=== PATIENT | male | born 1965 | race African-American/Black ===

== ENCOUNTER 2019-05-20 11:18 | Inpatient (IN) | payer SELFPAY ==
[2019-05-20 12:22] VITALS: BMI 26.4
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
[2019-05-20] MEDS ORDERED: MAGNESIUM HYDROX 2400MG/30ML ORAL SUSPENSION 30 ML CUP PO PRN (12:51)
[2019-05-20] MEDS ORDERED: hydrOXYzine PAMOATE 25 MG CAPSULE (FP) PO PRN (12:51)
[2019-05-20] MEDS ORDERED: MAG HYDROX/AL HYDROX/SIMETH 30 ML UNIT-DOSE CUP PO PRN (12:51)
[2019-05-20] MEDS ORDERED: MAGNESIUM CITRATE 300 ML BOTTLE PO PRN (12:51)
[2019-05-20] MEDS ORDERED: ACETAMINOPHEN 325 MG TABLET (FP) PO PRN ×2 (12:51)
[2019-05-20] MEDS ORDERED: MENTHOL/PHENOL 1 EACH UD MM PRN (12:51)
[2019-05-20] MEDS ORDERED: BISMUTH SUBSALICYLATE 262 MG/15 ML BTL PO PRN (12:51)
[2019-05-20] MEDS ORDERED: MELATONIN 5 MG TABLETS PO PRN (12:51)
[2019-05-20] MEDS ORDERED: METHOCARBAMOL 500 MG TABLET PO PRN (12:51)
[2019-05-20] MEDS ORDERED: IBUPROFEN 400 MG TABLET (FP) PO PRN (12:51)
[2019-05-20] MEDS ORDERED: chlordiazePOXIDE HCL 10 MG CAPSULE PO PRN (12:51)
[2019-05-20] MEDS ORDERED: ALBUTEROL SO4 8 GM HFA INHALER IH PRN (12:55)
--- NOTE | 2019-05-20 13:46 | EKG ---
Test Reason : Blood Pressure : / mmHG Vent. Rate : 054 BPM Atrial Rate : 054 BPM P-R Int : 130 ms QRS Dur : 122 ms QT Int : 454 ms P-R-T Axes : 025 047 111 degrees QTc Int : 430 ms SINUS BRADYCARDIA WITH PREMATURE ATRIAL COMPLEXES NON-SPECIFIC INTRA-VENTRICULAR CONDUCTION DELAY ST ELEVATION, CONSIDER EARLY REPOLARIZATION, PERICARDITIS, OR INJURY ABNORMAL ECG NO PREVIOUS ECGS AVAILABLE Confirmed by YASMIN MOTT, MANJINDER ([id number]) on 05/20/2019 1:45:47 PM Referred By: Confirmed By:MANJINDER HOFFMAN MD
[2019-05-20] MEDS: chlordiazePOXIDE HCL 25 MG CAPSULE PO SCH ×2 (14:12→21:23)
[2019-05-20] MEDS: NICOTINE 14 MG/24 HOURS TOPICAL PATCH TD SCH (14:14)
[2019-05-20 15:41] LABS: HEMATOCRIT 38.7 % (35.4-49); MCH 26.7 pg (25.7-33.7); MCHC 31.1 g/dl (32.0-35.9); MEAN CELL VOLUME 85.9 fl (80-96); MEAN PLT VOLUME 8.7 fl (7.5-11.1); PLATELET COUNT 188 K/MM3 (134-434); RBC 4.51 M/mm3 (4.00-5.60); RDW 16.8 % (11.9-15.9); WHITE BLOOD COUNT 5.5 K/mm3 (4.0-10.0)
[2019-05-20 16:04] LABS: ALBUMIN 3.5 g/dl (3.4-5.0); BILIRUBIN,TOTAL 0.3 mg/dL (0.2-1); BLOOD UREA NITROGEN 20.5 mg/dL (7-18); CALCIUM 8.9 mg/dL (8.5-10.1); CREATININE 1.2 mg/dL (0.55-1.3); POTASSIUM 4.3 mmol/L (3.5-5.1); TOT PROT 8.1 g/dl (6.4-8.2)
[2019-05-20] MEDS: hydrALAZINE HCL 25 MG TABLET (FP) PO SCH ×2 (16:10→22:23)
[2019-05-20] MEDS: GABAPENTIN 400 MG CAPSULE (FP) PO SCH ×2 (16:45→22:23)
[2019-05-20] MEDS: THIAMINE HCL 100 MG TABLET (FP) PO SCH (22:23)
[2019-05-20] MEDS: CARVEDILOL 25 MG TABLET (FP) PO SCH (22:23)
[2019-05-21] MEDS: chlordiazePOXIDE HCL 25 MG CAPSULE PO SCH ×3 (06:21→22:38)
[2019-05-21] MEDS: hydrALAZINE HCL 25 MG TABLET (FP) PO SCH ×3 (06:21→22:37)
[2019-05-21] MEDS: GABAPENTIN 400 MG CAPSULE (FP) PO SCH ×3 (06:21→22:37)
[2019-05-21] MEDS: RANITIDINE HCL 150 MG TABLET (FP) PO SCH (10:30)
[2019-05-21] MEDS: FUROSEMIDE 40 MG TABLET (FP) PO SCH (10:30)
[2019-05-21] MEDS: CARVEDILOL 25 MG TABLET (FP) PO SCH ×2 (10:30→22:37)
[2019-05-21] MEDS: LISINOPRIL 10 MG TABLET (FP) PO SCH (10:30)
[2019-05-21] MEDS: PRENATAL VITAMINS W/ FOLIC ACID TABLET (FP) PO SCH (10:30)
[2019-05-21] MEDS: NICOTINE 14 MG/24 HOURS TOPICAL PATCH TD SCH (10:30)
[2019-05-21 11:22] LABS: RPR REACTIVE 1:8 (NONREACTIVE)
[2019-05-21 11:25] LABS: TREPONEMA ANTIBODY PREVIOUSLY REACTIVE (NONREACTIVE)
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
[2019-05-21] MEDS ORDERED: PENICILLIN G BENZATHINE 2,400,000 UNIT/4 ML PFS IM ONE (12:16)
--- NOTE | 2019-05-21 12:22 | PN ---
S CIWA - CIWA Score Nausea/Vomitin-Mild Nausea/No Vomiting Muscle Tremors: 2 Anxiety: 3 Agitation: 2 Paroxysmal Sweats: 1-Minimal Palms Moist Orientation: 0-Oriented Tacttile Disturbances: 1-Very Mild Itch/Numbness Auditory Disturbances: 0-None Visual Disturbances: 0-None Headache: 2-Mild CIWA-Ar Total Score: 12 BHS Progress Note (SOAP) Subjective: alert,irritable,anxious,interrupted sleep,tremor Objective: 05/21/19 12:18 Vital Signs Temperature 98.1 F 05/21/19 09:30 Pulse Rate 80 05/21/19 09:30 Respiratory Rate 18 05/21/19 09:30 Blood Pressure 122/90 05/21/19 09:30 O2 Sat by Pulse Oximetry (%) Laboratory Last Values WBC 5.5 K/mm3 (4.0-10.0) 05/20/19 13:00 RBC 4.51 M/mm3 (4.00-5.60) 05/20/19 13:00 Hgb 12.0 GM/dL (11.7-16.9) 05/20/19 13:00 Hct 38.7 % (35.4-49) 05/20/19 13:00 MCV 85.9 fl (80-96) 05/20/19 13:00 MCH 26.7 pg (25.7-33.7) D 05/20/19 13:00 MCHC 31.1 g/dl (32.0-35.9) L 05/20/19 13:00 RDW 16.8 % (11.9-15.9) H 05/20/19 13:00 Plt Count 188 K/MM3 (134-434) D 05/20/19 13:00 MPV 8.7 fl (7.5-11.1) D 05/20/19 13:00 Sodium 145 mmol/L (136-145) 05/20/19 13:00 Potassium 4.3 mmol/L (3.5-5.1) 05/20/19 13:00 Chloride 108 mmol/L (98-107) H 05/20/19 13:00 Carbon Dioxide 28 mmol/L (21-32) 05/20/19 13:00 Anion Gap 8 MMOL/L (8-16) 05/20/19 13:00 BUN 20.5 mg/dL (7-18) H 05/20/19 13:00 Creatinine 1.2 mg/dL (0.55-1.3) 05/20/19 13:00 Est GFR (CKD-EPI)AfAm 78.98 05/20/19 13:00 Est GFR (CKD-EPI)NonAf 68.14 05/20/19 13:00 Random Glucose 82 mg/dL (74-106) 05/20/19 13:00 Calcium 8.9 mg/dL (8.5-10.1) 05/20/19 13:00 Total Bilirubin 0.3 mg/dL (0.2-1) 05/20/19 13:00 AST 22 U/L (15-37) 05/20/19 13:00 ALT 22 U/L (13-61) 05/20/19 13:00 Alkaline Phosphatase 87 U/L (45-117) 05/20/19 13:00 Total Protein 8.1 g/dl (6.4-8.2) 05/20/19 13:00 Albumin 3.5 g/dl (3.4-5.0) 05/20/19 13:00 RPR Titer Reactive 1:8 (NONREACTIVE) H D 05/20/19 13:00 T.pallidum Ab (MHA) Previously reactive (NONREACTIVE) 05/20/19 13:00 Assessment: 05/21/19 12:19 withdrawal symptom Plan: continue detox librium regimen,rpr positive with titer 1:8,adequately teated in [place] in 2018 with x injection, will give bicillin 2.4 millions unit in today,patient will follow up with medical provider at [facility] after discharge
[2019-05-21] MEDS: SUVOREXANT 10 MG TABLET PO PRN (22:37)
[2019-05-21] MEDS: THIAMINE HCL 100 MG TABLET (FP) PO SCH (22:38)
[2019-05-22] MEDS: GABAPENTIN 400 MG CAPSULE (FP) PO SCH ×3 (07:19→21:17)
[2019-05-22] MEDS: hydrALAZINE HCL 25 MG TABLET (FP) PO SCH ×3 (07:19→21:17)
[2019-05-22] MEDS: chlordiazePOXIDE 5 MG CAPSULE PO SCH ×3 (07:19→21:17)
[2019-05-22] MEDS: RANITIDINE HCL 150 MG TABLET (FP) PO SCH (10:30)
[2019-05-22] MEDS: LISINOPRIL 10 MG TABLET (FP) PO SCH (10:30)
[2019-05-22] MEDS: FUROSEMIDE 40 MG TABLET (FP) PO SCH (10:30)
[2019-05-22] MEDS: CARVEDILOL 25 MG TABLET (FP) PO SCH ×2 (10:30→21:17)
[2019-05-22] MEDS: NICOTINE 14 MG/24 HOURS TOPICAL PATCH TD SCH (10:30)
[2019-05-22] MEDS: PRENATAL VITAMINS W/ FOLIC ACID TABLET (FP) PO SCH (10:30)
--- NOTE | 2019-05-22 12:12 | PN ---
S CIWA - CIWA Score Nausea/Vomitin Muscle Tremors: 1-None Visible, but [place] Anxiety: 2 Agitation: 0-Normal Activity Paroxysmal Sweats: 2 Orientation: 0-Oriented Tacttile Disturbances: 1-Very Mild Itch/Numbness Auditory Disturbances: 0-None Visual Disturbances: 1-Very Mild Sensitivity Headache: 2-Mild CIWA-Ar Total Score: 12 BHS Progress Note (SOAP) Subjective: c/o of interrupted sleep, body aches, shakes, fatigue Objective: 05/22/19 12:10 Vital Signs Temperature 96.8 F L 05/22/19 09:23 Pulse Rate 92 H 05/22/19 09:23 Respiratory Rate 20 05/22/19 09:23 Blood Pressure 148/77 05/22/19 09:23 O2 Sat by Pulse Oximetry (%) Laboratory Last Values WBC 5.5 K/mm3 (4.0-10.0) 05/20/19 13:00 RBC 4.51 M/mm3 (4.00-5.60) 05/20/19 13:00 Hgb 12.0 GM/dL (11.7-16.9) 05/20/19 13:00 Hct 38.7 % (35.4-49) 05/20/19 13:00 MCV 85.9 fl (80-96) 05/20/19 13:00 MCH 26.7 pg (25.7-33.7) D 05/20/19 13:00 MCHC 31.1 g/dl (32.0-35.9) L 05/20/19 13:00 RDW 16.8 % (11.9-15.9) H 05/20/19 13:00 Plt Count 188 K/MM3 (134-434) D 05/20/19 13:00 MPV 8.7 fl (7.5-11.1) D 05/20/19 13:00 Sodium 145 mmol/L (136-145) 05/20/19 13:00 Potassium 4.3 mmol/L (3.5-5.1) 05/20/19 13:00 Chloride 108 mmol/L (98-107) H 05/20/19 13:00 Carbon Dioxide 28 mmol/L (21-32) 05/20/19 13:00 Anion Gap 8 MMOL/L (8-16) 05/20/19 13:00 BUN 20.5 mg/dL (7-18) H 05/20/19 13:00 Creatinine 1.2 mg/dL (0.55-1.3) 05/20/19 13:00 Est GFR (CKD-EPI)AfAm 78.98 05/20/19 13:00 Est GFR (CKD-EPI)NonAf 68.14 05/20/19 13:00 Random Glucose 82 mg/dL (74-106) 05/20/19 13:00 Calcium 8.9 mg/dL (8.5-10.1) 05/20/19 13:00 Total Bilirubin 0.3 mg/dL (0.2-1) 05/20/19 13:00 AST 22 U/L (15-37) 05/20/19 13:00 ALT 22 U/L (13-61) 05/20/19 13:00 Alkaline Phosphatase 87 U/L (45-117) 05/20/19 13:00 Total Protein 8.1 g/dl (6.4-8.2) 05/20/19 13:00 Albumin 3.5 g/dl (3.4-5.0) 05/20/19 13:00 RPR Titer Reactive 1:8 (NONREACTIVE) H D 05/20/19 13:00 T.pallidum Ab (MHA) Previously reactive (NONREACTIVE) 05/20/19 13:00 Assessment: 05/22/19 12:10 Patient A Ox3 no acute distress, thin EENT WNL + mild hand tremor secondary to withdrawal full ROM, steady gait w/ cane no edema or erythema Plan: increase PO fluids continue detox MAT reviewed with patient, encourage to follow up with rehab post detox continue to monitor
[2019-05-22] MEDS: THIAMINE HCL 100 MG TABLET (FP) PO SCH (21:17)
[2019-05-22] MEDS: SUVOREXANT 10 MG TABLET PO PRN (21:21)
[2019-05-23] MEDS ORDERED: chlordiazePOXIDE HCL 10 MG CAPSULE PO PRN
[2019-05-23] MEDS: chlordiazePOXIDE HCL 10 MG CAPSULE PO SCH ×3 (06:32→22:09)
[2019-05-23] MEDS: hydrALAZINE HCL 25 MG TABLET (FP) PO SCH ×3 (06:32→22:09)
[2019-05-23] MEDS: GABAPENTIN 400 MG CAPSULE (FP) PO SCH ×3 (06:32→22:09)
[2019-05-23] MEDS: RANITIDINE HCL 150 MG TABLET (FP) PO SCH (10:52)
[2019-05-23] MEDS: NICOTINE 14 MG/24 HOURS TOPICAL PATCH TD SCH (10:52)
[2019-05-23] MEDS: LISINOPRIL 10 MG TABLET (FP) PO SCH (10:53)
[2019-05-23] MEDS: PRENATAL VITAMINS W/ FOLIC ACID TABLET (FP) PO SCH (10:53)
[2019-05-23] MEDS: FUROSEMIDE 40 MG TABLET (FP) PO SCH (10:53)
[2019-05-23] MEDS: CARVEDILOL 25 MG TABLET (FP) PO SCH ×2 (10:53→22:09)
--- NOTE | 2019-05-23 11:33 | PN ---
S CIWA - CIWA Score Nausea/Vomitin-No Nausea/No Vomiting Muscle Tremors: None Anxiety: 3 Agitation: 0-Normal Activity Paroxysmal Sweats: 2 Orientation: 0-Oriented Tacttile Disturbances: 0-None Auditory Disturbances: 0-None Visual Disturbances: 0-None Headache: 0-None Present CIWA-Ar Total Score: 5 BHS Progress Note (SOAP) Subjective: c/o sweats, anxiety, and interrupted sleep. Objective: 05/23/19 11:29 Vital Signs 05/23/19 05/23/19 05/23/19 03:30 07:18 09:47 Temperature 99.1 F 99 F Pulse Rate 74 87 Respiratory 18 18 18 Rate Blood Pressure 145/85 143/79 Lab Results WBC 5.5 K/mm3 (4.0-10.0) 05/20/19 13:00 RBC 4.51 M/mm3 (4.00-5.60) 05/20/19 13:00 Hgb 12.0 GM/dL (11.7-16.9) 05/20/19 13:00 Hct 38.7 % (35.4-49) 05/20/19 13:00 MCV 85.9 fl (80-96) 05/20/19 13:00 MCHC 31.1 g/dl (32.0-35.9) L 05/20/19 13:00 RDW 16.8 % (11.9-15.9) H 05/20/19 13:00 Plt Count 188 K/MM3 (134-434) D 05/20/19 13:00 Sodium 145 mmol/L (136-145) 05/20/19 13:00 Potassium 4.3 mmol/L (3.5-5.1) 05/20/19 13:00 Chloride 108 mmol/L (98-107) H 05/20/19 13:00 Carbon Dioxide 28 mmol/L (21-32) 05/20/19 13:00 Anion Gap 8 MMOL/L (8-16) 05/20/19 13:00 BUN 20.5 mg/dL (7-18) H 05/20/19 13:00 Creatinine 1.2 mg/dL (0.55-1.3) 05/20/19 13:00 Random Glucose 82 mg/dL (74-106) 05/20/19 13:00 Calcium 8.9 mg/dL (8.5-10.1) 05/20/19 13:00 Labs noted. Assessment: 05/23/19 11:29 AOX3, in no acute respiratory distress. Full ROM, ambulating in the unit. Withdrawal symptoms. For d/c in AM. as per counselor's notes, Pt continue to be motivated to further tx at [facility]. 05/23/19 11:31 Plan: continue detox. D/C in AM.
[2019-05-23 20:19] VITALS: BP 167/108; PULSE 96; TEMP 100.6
--- NOTE | 2019-05-23 20:36 | PN ---
[facility] Progress Note Note: rapid response called at 19.40, patient has episode of near syncope,nausea,vomiting x2 no fall mentioned chest pain earlier today,never told any of medical staff history of open heart surgery pulse oximeter 94 bp 167/108,p110,r16,t100.6 heent normal no jvd heart normal heart sound,regular rhythm abdomen soft,no distention,no pain or tenderness no calf tenderness bgm 138 impression near syncope chest pain alcohol dependence hypertension hypercholesterolemia bipolar 1 disorder history of syphilis fever ? treatment transfer to [facility] for evaluation and treatment,dr Tami Dominguez by [facility]
[2019-05-23] MEDS: THIAMINE HCL 100 MG TABLET (FP) PO SCH (22:09)
[2019-05-24] MEDS ORDERED: chlordiazePOXIDE HCL 10 MG CAPSULE PO ONE (05:00)
== END 2019-05-24 07:00 | disposition short-term general hospital (02) | DRG 774 ==
LOC: YASAS 11:18 → Y6N 13:16
PROVIDERS: ADMIT Surgery; ATTEND Surgery
PROC: HZ2ZZZZ Detoxification Services for Substance Abuse Treatment (ICD-10-PCS; principal; 2019-05-20)
DX: F10.230 Alcohol dependence with withdrawal, uncomplicated (principal); F14.20 Cocaine dependence, uncomplicated; F17.213 Nicotine dependence, cigarettes, with withdrawal; F31.89 Other bipolar disorder; F19.24 Other psychoactive substance dependence with psychoactive substance-induced mood disorder; F19.282 Other psychoactive substance dependence with psychoactive substance-induced sleep disorder; I10 Essential (primary) hypertension; E78.5 Hyperlipidemia, unspecified; J45.909 Unspecified asthma, uncomplicated; G47.30 Sleep apnea, unspecified; I35.0 Nonrheumatic aortic (valve) stenosis; R55 Syncope and collapse; R11.2 Nausea with vomiting, unspecified; R07.9 Chest pain, unspecified; Z87.438 Personal history of other diseases of male genital organs; Z98.890 Other specified postprocedural states; Z95.2 Presence of prosthetic heart valve; Z59.0 Homelessness
CPT/HCPCS: 36415; 71046-TC-FY; 80053; 82962; 85027; 86593; 86780; 93005; 93010

== ENCOUNTER 2021-12-24 09:36 | Inpatient (IN) | payer OTHER ==
[2021-12-24 10:12] VITALS: BMI 26.4
[2021-12-24] MEDS ORDERED: ONDANSETRON *ODT* 4 MG TABLET SL PRN (10:37)
[2021-12-24] MEDS ORDERED: P-EPHED 60MG/TRIPROLIDI 2.5MG TABLET PO PRN (10:37)
[2021-12-24] MEDS ORDERED: IBUPROFEN 400 MG TABLET (FP) PO PRN (10:37)
[2021-12-24] MEDS ORDERED: BISMUTH SUBSALICYLATE 524 MG/30 ML PO PRN (10:37)
[2021-12-24] MEDS ORDERED: DICYCLOMINE HCL 10 MG CAPSULE PO PRN (10:37)
[2021-12-24] MEDS ORDERED: MAG HYDROX/AL HYDROX/SIMETH 30 ML UNIT-DOSE CUP PO PRN (10:37)
[2021-12-24] MEDS ORDERED: MAGNESIUM CITRATE 300 ML BOTTLE PO PRN (10:37)
[2021-12-24] MEDS ORDERED: BENZOCAINE/MENTHOL (CHLORASEPTIC ) LOZENGE MM PRN (10:37)
[2021-12-24] MEDS ORDERED: MELATONIN 5 MG TABLETS PO PRN (10:37)
[2021-12-24] MEDS ORDERED: NICOTINE POLACRILEX 2 MG GUM BUC PRN (10:37)
[2021-12-24] MEDS ORDERED: METHOCARBAMOL 500 MG TABLET PO PRN (10:37)
[2021-12-24] MEDS ORDERED: ACETAMINOPHEN 325 MG TABLET (FP) PO PRN ×2 (10:37)
[2021-12-24] MEDS ORDERED: hydrOXYzine PAMOATE 25 MG CAPSULE (FP) PO PRN (10:37)
[2021-12-24] MEDS ORDERED: MAGNESIUM HYDROX 2400MG/30ML ORAL SUSPENSION 30 ML CUP PO PRN (10:37)
[2021-12-24] MEDS ORDERED: LOPERAMIDE HCL 2 MG CAPSULE PO PRN (10:37)
[2021-12-24] MEDS ORDERED: methaDONE HCL 10 MG TABLET (FOR DETOX USE ONLY) PO ONE (10:42)
[2021-12-24] MEDS ORDERED: ALBUTEROL SO4 HFA INHALER IH PRN (11:17)
[2021-12-24] MEDS ORDERED: SENNOSIDES 8.6MG TABLET (FP) PO PRN (11:17)
[2021-12-24] MEDS ORDERED: GABAPENTIN 300 MG CAPSULE PO PRN (11:25)
[2021-12-24] MEDS ORDERED: GABAPENTIN 300 MG CAPSULE PO SCH (11:30)
[2021-12-24] MEDS ORDERED: CARVEDILOL 12.5 MG TABLET (FP) PO SCH (11:30)
[2021-12-24] MEDS: diazePAM 5 MG TABLET PO SCH ×3 (12:18→22:11)
[2021-12-24] MEDS: ASPIRIN 81 MG CHEWABLE TABLETS PO SCH (12:19)
[2021-12-24] MEDS: APIXABAN 5 MG TABLET PO SCH ×2 (12:19→22:12)
[2021-12-24] MEDS: FUROSEMIDE 40 MG TABLET (FP) PO SCH (12:19)
[2021-12-24] MEDS: hydrALAZINE HCL 25 MG TABLET (FP) PO SCH ×2 (15:37→22:12)
[2021-12-24] MEDS: THIAMINE HCL 100 MG TABLET (FP) PO SCH (22:12)
[2021-12-24] MEDS: MONTELUKAST NA 10 MG TABLET PO SCH (22:12)
[2021-12-24] MEDS: ATORVASTATIN CA 80 MG TABLET (FP) PO SCH (22:12)
[2021-12-24] MEDS: CARVEDILOL 25 MG TABLET (FP) PO SCH (23:38)
[2021-12-25] MEDS: hydrALAZINE HCL 25 MG TABLET (FP) PO SCH (05:20)
[2021-12-25] MEDS: diazePAM 5 MG TABLET PO SCH ×4 (05:20→22:06)
[2021-12-25] MEDS ORDERED: methaDONE HCL 10 MG TABLET (FOR DETOX USE ONLY) PO ONE (10:00)
[2021-12-25] MEDS: PRENATAL VITAMINS W/ FOLIC ACID TABLET (FP) PO SCH (10:33)
[2021-12-25] MEDS: ASPIRIN 81 MG CHEWABLE TABLETS PO SCH (10:36)
[2021-12-25] MEDS: APIXABAN 5 MG TABLET PO SCH ×2 (10:36→22:06)
[2021-12-25] MEDS: CARVEDILOL 25 MG TABLET (FP) PO SCH ×2 (10:36→22:06)
[2021-12-25] MEDS: FUROSEMIDE 40 MG TABLET (FP) PO SCH (10:36)
[2021-12-25] MEDS: BUDESONIDE/FORMETEROL FUMARATE 160/4.5 mcg INHALER IH SCH ×2 (10:37→22:09)
[2021-12-25 12:29] LABS: HEMATOCRIT 34.9 % (35.4-49); HEMOGLOBIN 11.5 GM/dL (11.7-16.9); MCH 28.4 pg (25.7-33.7); MCHC 32.8 g/dl (32.0-35.9); MEAN CELL VOLUME 86.7 fl (80-96); MEAN PLT VOLUME 8.3 fl (7.5-11.1); PLATELET COUNT 125 10^3/uL (134-434); RBC 4.03 M/mm3 (4.00-5.60); RDW 16.8 % (11.9-15.9); WHITE BLOOD COUNT 3.3 K/mm3 (4.0-10.0)
[2021-12-25 13:13] LABS: CALCIUM 8.1 mg/dL (8.5-10.1)
[2021-12-25 13:14] LABS: BLOOD UREA NITROGEN 19.3 mg/dL (7-18)
[2021-12-25 13:18] LABS: BILIRUBIN,TOTAL 0.3 mg/dL (0.2-1); TOT PROT 6.6 g/dl (6.4-8.2)
[2021-12-25] MEDS: hydrALAZINE HCL 50 MG TABLET (FP) PO SCH ×2 (13:51→22:06)
[2021-12-25] MEDS: THIAMINE HCL 100 MG TABLET (FP) PO SCH (22:06)
[2021-12-25] MEDS: ATORVASTATIN CA 80 MG TABLET (FP) PO SCH (22:06)
[2021-12-25] MEDS: MONTELUKAST NA 10 MG TABLET PO SCH (22:06)
[2021-12-25] MEDS: SUVOREXANT 10 MG TABLET PO PRN (22:08)
[2021-12-26] MEDS: diazePAM 5 MG TABLET PO SCH ×3 (05:25→22:37)
[2021-12-26] MEDS: hydrALAZINE HCL 50 MG TABLET (FP) PO SCH ×3 (05:26→22:35)
[2021-12-26] MEDS ORDERED: methaDONE HCL 10 MG TABLET (FOR DETOX USE ONLY) PO ONE (10:00)
[2021-12-26] MEDS: CARVEDILOL 25 MG TABLET (FP) PO SCH ×2 (10:37→22:35)
[2021-12-26] MEDS: ASPIRIN 81 MG CHEWABLE TABLETS PO SCH (10:37)
[2021-12-26] MEDS: PRENATAL VITAMINS W/ FOLIC ACID TABLET (FP) PO SCH (10:37)
[2021-12-26] MEDS: APIXABAN 5 MG TABLET PO SCH ×2 (10:37→22:35)
[2021-12-26] MEDS: diazePAM 5 MG TABLET PO PRN (10:41)
[2021-12-26] MEDS: BUDESONIDE/FORMETEROL FUMARATE 160/4.5 mcg INHALER IH SCH ×2 (10:44→22:36)
[2021-12-26] MEDS: FUROSEMIDE 40 MG TABLET (FP) PO SCH (10:44)
[2021-12-26] MEDS ORDERED: PENICILLIN G BENZATHINE 2,400,000 UNIT/4 ML PFS IM ONE (16:52)
[2021-12-26] MEDS: SUVOREXANT 10 MG TABLET PO PRN (22:34)
[2021-12-26] MEDS: ATORVASTATIN CA 80 MG TABLET (FP) PO SCH (22:35)
[2021-12-26] MEDS: THIAMINE HCL 100 MG TABLET (FP) PO SCH (22:35)
[2021-12-26] MEDS: MONTELUKAST NA 10 MG TABLET PO SCH (22:35)
[2021-12-27] MEDS: diazePAM 5 MG TABLET PO SCH ×2 (07:24→17:15)
[2021-12-27] MEDS: hydrALAZINE HCL 50 MG TABLET (FP) PO SCH ×3 (07:24→22:14)
[2021-12-27] MEDS ORDERED: methaDONE HCL 10 MG TABLET (FOR DETOX USE ONLY) PO ONE (10:00)
[2021-12-27] MEDS: PRENATAL VITAMINS W/ FOLIC ACID TABLET (FP) PO SCH (10:12)
[2021-12-27] MEDS: CARVEDILOL 25 MG TABLET (FP) PO SCH ×2 (10:12→22:14)
[2021-12-27] MEDS: ASPIRIN 81 MG CHEWABLE TABLETS PO SCH (10:12)
[2021-12-27] MEDS: BUDESONIDE/FORMETEROL FUMARATE 160/4.5 mcg INHALER IH SCH ×2 (10:12→22:15)
[2021-12-27] MEDS: APIXABAN 5 MG TABLET PO SCH ×2 (10:12→22:14)
[2021-12-27] MEDS: FUROSEMIDE 40 MG TABLET (FP) PO SCH (10:12)
[2021-12-27] MEDS: diazePAM 5 MG TABLET PO PRN (10:15)
[2021-12-27 14:08] LABS: SARS-CoV-2 NAA Not Detected (Not Detected)
[2021-12-27] MEDS: SUVOREXANT 10 MG TABLET PO PRN (22:14)
[2021-12-27] MEDS: THIAMINE HCL 100 MG TABLET (FP) PO SCH (22:14)
[2021-12-27] MEDS: MONTELUKAST NA 10 MG TABLET PO SCH (22:14)
[2021-12-27] MEDS: ATORVASTATIN CA 80 MG TABLET (FP) PO SCH (22:14)
[2021-12-28] MEDS ORDERED: diazePAM 5 MG TABLET PO ONE (06:00)
[2021-12-28] MEDS: hydrALAZINE HCL 50 MG TABLET (FP) PO SCH (06:06)
[2021-12-28] MEDS: ASPIRIN 81 MG CHEWABLE TABLETS PO SCH (10:26)
[2021-12-28] MEDS: FUROSEMIDE 40 MG TABLET (FP) PO SCH (10:26)
[2021-12-28] MEDS: CARVEDILOL 25 MG TABLET (FP) PO SCH (10:26)
[2021-12-28] MEDS: APIXABAN 5 MG TABLET PO SCH (10:27)
[2021-12-28] MEDS: PRENATAL VITAMINS W/ FOLIC ACID TABLET (FP) PO SCH (10:27)
[2021-12-28] MEDS: BUDESONIDE/FORMETEROL FUMARATE 160/4.5 mcg INHALER IH SCH (10:28)
[2021-12-28 13:23] VITALS: BP 120/84; PULSE 72; TEMP 97.9
== END 2021-12-28 13:30 | disposition other institution (70) | DRG 774 ==
LOC: YASAS 09:36 → UNDOADMIN 11:05 → Y3N 11:05
PROVIDERS: ADMIT Neuromusculoskeletal Medicine & OMM; ATTEND Neuromusculoskeletal Medicine & OMM
PROC: HZ2ZZZZ Detoxification Services for Substance Abuse Treatment (ICD-10-PCS; principal; 2021-12-24)
DX: F10.230 Alcohol dependence with withdrawal, uncomplicated (principal); F14.20 Cocaine dependence, uncomplicated; F12.20 Cannabis dependence, uncomplicated; F17.210 Nicotine dependence, cigarettes, uncomplicated; F19.282 Other psychoactive substance dependence with psychoactive substance-induced sleep disorder; F19.24 Other psychoactive substance dependence with psychoactive substance-induced mood disorder; F31.9 Bipolar disorder, unspecified; E78.5 Hyperlipidemia, unspecified; I25.10 Atherosclerotic heart disease of native coronary artery without angina pectoris; I10 Essential (primary) hypertension; J45.909 Unspecified asthma, uncomplicated; G47.30 Sleep apnea, unspecified; R94.31 Abnormal electrocardiogram [ECG] [EKG]; Z62.810 Personal history of physical and sexual abuse in childhood; Z95.2 Presence of prosthetic heart valve; Z79.01 Long term (current) use of anticoagulants; Z86.19 Personal history of other infectious and parasitic diseases; Z56.0 Unemployment, unspecified; Z59.00 Homelessness unspecified
CPT/HCPCS: 36415; 71046-TC-FY; 80053; 85027; 86593; 86780; 87811; C9803-CS; U0003; U0005

== ENCOUNTER 2021-12-28 13:39 | Inpatient (IN) | payer OTHER ==
[2021-12-28] MEDS ORDERED: LOPERAMIDE HCL 2 MG CAPSULE PO PRN (15:57)
[2021-12-28] MEDS ORDERED: MAGNESIUM CITRATE 300 ML BOTTLE PO PRN (15:57)
[2021-12-28] MEDS ORDERED: MAGNESIUM HYDROX 2400MG/30ML ORAL SUSPENSION 30 ML CUP PO PRN (15:57)
[2021-12-28] MEDS ORDERED: MAG HYDROX/AL HYDROX/SIMETH 30 ML UNIT-DOSE CUP PO PRN (15:57)
[2021-12-28] MEDS ORDERED: IBUPROFEN 400 MG TABLET (FP) PO PRN (15:57)
[2021-12-28] MEDS ORDERED: BENZOCAINE/MENTHOL (CHLORASEPTIC ) LOZENGE MM PRN (15:57)
[2021-12-28] MEDS ORDERED: guaiFENesin 200 MG/10 ML 10 ML UNIT-DOSE CUPS PO PRN (15:57)
[2021-12-28] MEDS ORDERED: NICOTINE 10 MG CARTRIDGE (INHALER) IH PRN (15:57)
[2021-12-28] MEDS ORDERED: ALBUTEROL SO4 HFA INHALER IH PRN (16:00)
[2021-12-28] MEDS: MONTELUKAST NA 10 MG TABLET PO SCH (21:03)
[2021-12-28] MEDS: CARVEDILOL 25 MG TABLET (FP) PO SCH (21:03)
[2021-12-28] MEDS: THIAMINE HCL 100 MG TABLET (FP) PO SCH (21:03)
[2021-12-28] MEDS: APIXABAN 5 MG TABLET PO SCH (21:03)
[2021-12-28] MEDS: hydrALAZINE HCL 50 MG TABLET (FP) PO SCH (21:03)
[2021-12-28] MEDS: ATORVASTATIN CA 40 MG TABLET (FP) PO SCH (21:03)
[2021-12-28] MEDS: SENNOSIDES 8.6MG TABLET (FP) PO SCH (21:03)
[2021-12-28] MEDS: hydrOXYzine PAMOATE 25 MG CAPSULE (FP) PO PRN (21:06)
[2021-12-28] MEDS ORDERED: MELATONIN 5 MG TABLETS PO SCH (22:00)
[2021-12-28] MEDS: BUDESONIDE/FORMETEROL FUMARATE 160/4.5 mcg INHALER IH SCH (22:41)
[2021-12-29] MEDS: hydrALAZINE HCL 50 MG TABLET (FP) PO SCH ×3 (06:36→21:12)
[2021-12-29] MEDS: PRENATAL VITAMINS W/ FOLIC ACID TABLET (FP) PO SCH (09:52)
[2021-12-29] MEDS: NICOTINE 7 MG/24 HOURS TOPICAL PATCH TD SCH (09:53)
[2021-12-29] MEDS: APIXABAN 5 MG TABLET PO SCH ×2 (09:54→21:12)
[2021-12-29] MEDS: ASPIRIN 81 MG CHEWABLE TABLETS PO SCH (09:54)
[2021-12-29] MEDS: CARVEDILOL 25 MG TABLET (FP) PO SCH ×2 (09:54→21:12)
[2021-12-29] MEDS: FUROSEMIDE 40 MG TABLET (FP) PO SCH (09:54)
[2021-12-29] MEDS: BUDESONIDE/FORMETEROL FUMARATE 160/4.5 mcg INHALER IH SCH ×2 (12:13→21:13)
[2021-12-29] MEDS: SENNOSIDES 8.6MG TABLET (FP) PO SCH (21:12)
[2021-12-29] MEDS: MONTELUKAST NA 10 MG TABLET PO SCH (21:12)
[2021-12-29] MEDS: THIAMINE HCL 100 MG TABLET (FP) PO SCH (21:12)
[2021-12-29] MEDS: ATORVASTATIN CA 40 MG TABLET (FP) PO SCH (21:12)
[2021-12-29] MEDS: SUVOREXANT 15 MG TABLET PO PRN (21:13)
[2021-12-30] MEDS: hydrALAZINE HCL 50 MG TABLET (FP) PO SCH ×3 (06:38→22:50)
[2021-12-30] MEDS: FUROSEMIDE 40 MG TABLET (FP) PO SCH (10:00)
[2021-12-30] MEDS: CARVEDILOL 25 MG TABLET (FP) PO SCH ×2 (10:00→21:43)
[2021-12-30] MEDS: ASPIRIN 81 MG CHEWABLE TABLETS PO SCH (10:00)
[2021-12-30] MEDS: PRENATAL VITAMINS W/ FOLIC ACID TABLET (FP) PO SCH (10:01)
[2021-12-30] MEDS: BUDESONIDE/FORMETEROL FUMARATE 160/4.5 mcg INHALER IH SCH ×2 (10:01→21:46)
[2021-12-30] MEDS: NICOTINE 7 MG/24 HOURS TOPICAL PATCH TD SCH (10:01)
[2021-12-30] MEDS: APIXABAN 5 MG TABLET PO SCH ×2 (10:02→21:46)
[2021-12-30] MEDS: ATORVASTATIN CA 40 MG TABLET (FP) PO SCH (21:43)
[2021-12-30] MEDS: MONTELUKAST NA 10 MG TABLET PO SCH (21:43)
[2021-12-30] MEDS: SUVOREXANT 15 MG TABLET PO PRN (21:44)
[2021-12-30] MEDS: THIAMINE HCL 100 MG TABLET (FP) PO SCH (21:44)
[2021-12-30] MEDS: SENNOSIDES 8.6MG TABLET (FP) PO SCH (21:46)
[2021-12-31] MEDS: hydrALAZINE HCL 50 MG TABLET (FP) PO SCH ×3 (06:04→21:51)
[2021-12-31] MEDS: NICOTINE 7 MG/24 HOURS TOPICAL PATCH TD SCH (09:56)
[2021-12-31] MEDS: FUROSEMIDE 40 MG TABLET (FP) PO SCH (09:56)
[2021-12-31] MEDS: PRENATAL VITAMINS W/ FOLIC ACID TABLET (FP) PO SCH (09:56)
[2021-12-31] MEDS: CARVEDILOL 25 MG TABLET (FP) PO SCH ×2 (09:56→21:51)
[2021-12-31] MEDS: ASPIRIN 81 MG CHEWABLE TABLETS PO SCH (09:56)
[2021-12-31] MEDS: APIXABAN 5 MG TABLET PO SCH ×2 (09:56→21:51)
[2021-12-31] MEDS: BUDESONIDE/FORMETEROL FUMARATE 160/4.5 mcg INHALER IH SCH ×2 (09:57→21:52)
[2021-12-31] MEDS: ATORVASTATIN CA 40 MG TABLET (FP) PO SCH (21:52)
[2021-12-31] MEDS: THIAMINE HCL 100 MG TABLET (FP) PO SCH (21:52)
[2021-12-31] MEDS: MONTELUKAST NA 10 MG TABLET PO SCH (21:52)
[2021-12-31] MEDS: SENNOSIDES 8.6MG TABLET (FP) PO SCH (21:52)
[2022-01-01] MEDS: hydrALAZINE HCL 50 MG TABLET (FP) PO SCH ×3 (06:09→21:12)
[2022-01-01] MEDS: P-EPHED 60MG/TRIPROLIDI 2.5MG TABLET PO PRN (06:10)
[2022-01-01] MEDS: PRENATAL VITAMINS W/ FOLIC ACID TABLET (FP) PO SCH (09:59)
[2022-01-01] MEDS: NICOTINE 7 MG/24 HOURS TOPICAL PATCH TD SCH (10:00)
[2022-01-01] MEDS: ASPIRIN 81 MG CHEWABLE TABLETS PO SCH (10:00)
[2022-01-01] MEDS: FUROSEMIDE 40 MG TABLET (FP) PO SCH (10:00)
[2022-01-01] MEDS: CARVEDILOL 25 MG TABLET (FP) PO SCH ×2 (10:00→21:09)
[2022-01-01] MEDS: BUDESONIDE/FORMETEROL FUMARATE 160/4.5 mcg INHALER IH SCH ×2 (10:01→21:10)
[2022-01-01] MEDS: APIXABAN 5 MG TABLET PO SCH ×2 (11:13→21:09)
[2022-01-01] MEDS: MONTELUKAST NA 10 MG TABLET PO SCH (21:09)
[2022-01-01] MEDS: THIAMINE HCL 100 MG TABLET (FP) PO SCH (21:09)
[2022-01-01] MEDS: ATORVASTATIN CA 40 MG TABLET (FP) PO SCH (21:09)
[2022-01-01] MEDS: hydrOXYzine PAMOATE 25 MG CAPSULE (FP) PO PRN (21:10)
[2022-01-01] MEDS: SUVOREXANT 15 MG TABLET PO PRN (21:15)
[2022-01-01] MEDS: SENNOSIDES 8.6MG TABLET (FP) PO SCH (21:59)
[2022-01-02] MEDS: hydrALAZINE HCL 50 MG TABLET (FP) PO SCH ×3 (06:12→21:10)
[2022-01-02] MEDS: PRENATAL VITAMINS W/ FOLIC ACID TABLET (FP) PO SCH (09:40)
[2022-01-02] MEDS: NICOTINE 7 MG/24 HOURS TOPICAL PATCH TD SCH (09:40)
[2022-01-02] MEDS: FUROSEMIDE 40 MG TABLET (FP) PO SCH (09:41)
[2022-01-02] MEDS: BUDESONIDE/FORMETEROL FUMARATE 160/4.5 mcg INHALER IH SCH ×2 (09:41→21:15)
[2022-01-02] MEDS: CARVEDILOL 25 MG TABLET (FP) PO SCH ×2 (09:41→21:10)
[2022-01-02] MEDS: APIXABAN 5 MG TABLET PO SCH ×2 (09:41→21:11)
[2022-01-02] MEDS: ASPIRIN 81 MG CHEWABLE TABLETS PO SCH (09:41)
[2022-01-02] MEDS: ATORVASTATIN CA 40 MG TABLET (FP) PO SCH (21:10)
[2022-01-02] MEDS: MONTELUKAST NA 10 MG TABLET PO SCH (21:10)
[2022-01-02] MEDS: SENNOSIDES 8.6MG TABLET (FP) PO SCH (21:11)
[2022-01-02] MEDS: SUVOREXANT 15 MG TABLET PO PRN (21:12)
[2022-01-02] MEDS: THIAMINE HCL 100 MG TABLET (FP) PO SCH (21:12)
[2022-01-02] MEDS: ACETAMINOPHEN 325 MG TABLET (FP) PO PRN (21:13)
[2022-01-03] MEDS: hydrALAZINE HCL 50 MG TABLET (FP) PO SCH ×3 (06:17→21:18)
[2022-01-03] MEDS: ACETAMINOPHEN 325 MG TABLET (FP) PO PRN (07:25)
[2022-01-03] MEDS: CARVEDILOL 25 MG TABLET (FP) PO SCH ×2 (09:45→21:17)
[2022-01-03] MEDS: PRENATAL VITAMINS W/ FOLIC ACID TABLET (FP) PO SCH (09:45)
[2022-01-03] MEDS: FUROSEMIDE 40 MG TABLET (FP) PO SCH (09:45)
[2022-01-03] MEDS: ASPIRIN 81 MG CHEWABLE TABLETS PO SCH (09:45)
[2022-01-03] MEDS: NICOTINE 7 MG/24 HOURS TOPICAL PATCH TD SCH (09:45)
[2022-01-03] MEDS: BUDESONIDE/FORMETEROL FUMARATE 160/4.5 mcg INHALER IH SCH ×2 (09:46→21:19)
[2022-01-03] MEDS: APIXABAN 5 MG TABLET PO SCH ×2 (09:46→21:17)
[2022-01-03] MEDS: LIDOCAINE 5% TOPICAL PATCH TP SCH (16:05)
[2022-01-03] MEDS: AMOXICILLIN 500 MG CAPSULE (FP) PO SCH ×2 (16:05→21:17)
[2022-01-03] MEDS: MONTELUKAST NA 10 MG TABLET PO SCH (21:17)
[2022-01-03] MEDS: ATORVASTATIN CA 40 MG TABLET (FP) PO SCH (21:17)
[2022-01-03] MEDS: THIAMINE HCL 100 MG TABLET (FP) PO SCH (21:17)
[2022-01-03] MEDS: SUVOREXANT 15 MG TABLET PO PRN (21:17)
[2022-01-03] MEDS: SENNOSIDES 8.6MG TABLET (FP) PO SCH (21:18)
[2022-01-03] MEDS: LIDOCAINE PATCH REMOVAL MC SCH (21:19)
[2022-01-04] MEDS: AMOXICILLIN 500 MG CAPSULE (FP) PO SCH ×3 (06:29→21:14)
[2022-01-04] MEDS: hydrALAZINE HCL 50 MG TABLET (FP) PO SCH ×3 (06:29→21:15)
[2022-01-04] MEDS: APIXABAN 5 MG TABLET PO SCH ×2 (10:01→21:15)
[2022-01-04] MEDS: FUROSEMIDE 40 MG TABLET (FP) PO SCH (10:02)
[2022-01-04] MEDS: CARVEDILOL 25 MG TABLET (FP) PO SCH ×2 (10:02→21:15)
[2022-01-04] MEDS: ASPIRIN 81 MG CHEWABLE TABLETS PO SCH (10:02)
[2022-01-04] MEDS: ACETAMINOPHEN 325 MG TABLET (FP) PO PRN (10:02)
[2022-01-04] MEDS: BUDESONIDE/FORMETEROL FUMARATE 160/4.5 mcg INHALER IH SCH ×2 (10:03→21:15)
[2022-01-04] MEDS: LIDOCAINE 5% TOPICAL PATCH TP SCH (10:03)
[2022-01-04] MEDS: PRENATAL VITAMINS W/ FOLIC ACID TABLET (FP) PO SCH (10:03)
[2022-01-04] MEDS: NICOTINE 7 MG/24 HOURS TOPICAL PATCH TD SCH (10:03)
[2022-01-04] MEDS: BENZOCAINE 20 % GEL TUBE MM PRN (12:36)
[2022-01-04] MEDS: LIDOCAINE PATCH REMOVAL MC SCH (21:14)
[2022-01-04] MEDS: MONTELUKAST NA 10 MG TABLET PO SCH (21:15)
[2022-01-04] MEDS: ATORVASTATIN CA 40 MG TABLET (FP) PO SCH (21:15)
[2022-01-04] MEDS: THIAMINE HCL 100 MG TABLET (FP) PO SCH (21:15)
[2022-01-04] MEDS: SENNOSIDES 8.6MG TABLET (FP) PO SCH (21:16)
[2022-01-04] MEDS: SUVOREXANT 15 MG TABLET PO PRN (21:17)
[2022-01-05] MEDS: hydrALAZINE HCL 50 MG TABLET (FP) PO SCH ×3 (06:49→21:22)
[2022-01-05] MEDS: AMOXICILLIN 500 MG CAPSULE (FP) PO SCH ×3 (06:49→21:21)
[2022-01-05] MEDS: PRENATAL VITAMINS W/ FOLIC ACID TABLET (FP) PO SCH (09:43)
[2022-01-05] MEDS: FUROSEMIDE 40 MG TABLET (FP) PO SCH (09:45)
[2022-01-05] MEDS: CARVEDILOL 25 MG TABLET (FP) PO SCH ×2 (09:45→21:21)
[2022-01-05] MEDS: ASPIRIN 81 MG CHEWABLE TABLETS PO SCH (09:45)
[2022-01-05] MEDS: ACETAMINOPHEN 325 MG TABLET (FP) PO PRN ×2 (09:45→21:23)
[2022-01-05] MEDS: BUDESONIDE/FORMETEROL FUMARATE 160/4.5 mcg INHALER IH SCH ×2 (09:46→21:21)
[2022-01-05] MEDS: NICOTINE 7 MG/24 HOURS TOPICAL PATCH TD SCH (09:46)
[2022-01-05] MEDS: BENZOCAINE 20 % GEL TUBE MM PRN (09:47)
[2022-01-05] MEDS: APIXABAN 5 MG TABLET PO SCH ×2 (09:48→21:21)
[2022-01-05] MEDS: LIDOCAINE 5% TOPICAL PATCH TP SCH (10:09)
[2022-01-05] MEDS: SUVOREXANT 15 MG TABLET PO PRN (21:19)
[2022-01-05] MEDS: SENNOSIDES 8.6MG TABLET (FP) PO SCH (21:20)
[2022-01-05] MEDS: ATORVASTATIN CA 40 MG TABLET (FP) PO SCH (21:20)
[2022-01-05] MEDS: THIAMINE HCL 100 MG TABLET (FP) PO SCH (21:21)
[2022-01-05] MEDS: LIDOCAINE PATCH REMOVAL MC SCH (21:21)
[2022-01-05] MEDS: MONTELUKAST NA 10 MG TABLET PO SCH (21:21)
[2022-01-06] MEDS: AMOXICILLIN 500 MG CAPSULE (FP) PO SCH ×3 (06:08→21:08)
[2022-01-06] MEDS: hydrALAZINE HCL 50 MG TABLET (FP) PO SCH ×3 (06:09→21:08)
[2022-01-06] MEDS: hydrOXYzine PAMOATE 25 MG CAPSULE (FP) PO PRN (06:10)
[2022-01-06] MEDS: PRENATAL VITAMINS W/ FOLIC ACID TABLET (FP) PO SCH (10:01)
[2022-01-06] MEDS: LIDOCAINE 5% TOPICAL PATCH TP SCH (10:02)
[2022-01-06] MEDS: APIXABAN 5 MG TABLET PO SCH ×2 (10:02→21:08)
[2022-01-06] MEDS: BUDESONIDE/FORMETEROL FUMARATE 160/4.5 mcg INHALER IH SCH ×2 (10:02→21:26)
[2022-01-06] MEDS: ASPIRIN 81 MG CHEWABLE TABLETS PO SCH (10:02)
[2022-01-06] MEDS: NICOTINE 7 MG/24 HOURS TOPICAL PATCH TD SCH (10:02)
[2022-01-06] MEDS: FUROSEMIDE 40 MG TABLET (FP) PO SCH (10:02)
[2022-01-06] MEDS: CARVEDILOL 25 MG TABLET (FP) PO SCH ×2 (10:02→21:08)
[2022-01-06] MEDS: THIAMINE HCL 100 MG TABLET (FP) PO SCH (21:07)
[2022-01-06] MEDS: ATORVASTATIN CA 40 MG TABLET (FP) PO SCH (21:07)
[2022-01-06] MEDS: MONTELUKAST NA 10 MG TABLET PO SCH (21:08)
[2022-01-06] MEDS: SENNOSIDES 8.6MG TABLET (FP) PO SCH (21:08)
[2022-01-06] MEDS: ACETAMINOPHEN 325 MG TABLET (FP) PO PRN (21:10)
[2022-01-06] MEDS: LIDOCAINE PATCH REMOVAL MC SCH (21:26)
[2022-01-07] MEDS: AMOXICILLIN 500 MG CAPSULE (FP) PO SCH ×3 (06:27→22:00)
[2022-01-07] MEDS: hydrALAZINE HCL 50 MG TABLET (FP) PO SCH ×3 (06:27→22:00)
[2022-01-07] MEDS: CARVEDILOL 25 MG TABLET (FP) PO SCH ×2 (09:46→21:59)
[2022-01-07] MEDS: ASPIRIN 81 MG CHEWABLE TABLETS PO SCH (09:46)
[2022-01-07] MEDS: NICOTINE 7 MG/24 HOURS TOPICAL PATCH TD SCH (09:46)
[2022-01-07] MEDS: FUROSEMIDE 40 MG TABLET (FP) PO SCH (09:46)
[2022-01-07] MEDS: BUDESONIDE/FORMETEROL FUMARATE 160/4.5 mcg INHALER IH SCH ×2 (09:46→22:02)
[2022-01-07] MEDS: PRENATAL VITAMINS W/ FOLIC ACID TABLET (FP) PO SCH (09:46)
[2022-01-07] MEDS: APIXABAN 5 MG TABLET PO SCH ×2 (09:46→21:59)
[2022-01-07] MEDS: LIDOCAINE 5% TOPICAL PATCH TP SCH (09:46)
[2022-01-07] MEDS: THIAMINE HCL 100 MG TABLET (FP) PO SCH (21:59)
[2022-01-07] MEDS: ATORVASTATIN CA 40 MG TABLET (FP) PO SCH (21:59)
[2022-01-07] MEDS: MONTELUKAST NA 10 MG TABLET PO SCH (22:00)
[2022-01-07] MEDS: LIDOCAINE PATCH REMOVAL MC SCH (22:00)
[2022-01-07] MEDS: SENNOSIDES 8.6MG TABLET (FP) PO SCH (22:00)
[2022-01-07] MEDS: SUVOREXANT 15 MG TABLET PO PRN (22:00)
[2022-01-08] MEDS: AMOXICILLIN 500 MG CAPSULE (FP) PO SCH ×3 (06:29→22:26)
[2022-01-08] MEDS: hydrALAZINE HCL 50 MG TABLET (FP) PO SCH ×3 (06:29→22:26)
[2022-01-08] MEDS: P-EPHED 60MG/TRIPROLIDI 2.5MG TABLET PO PRN (06:30)
[2022-01-08] MEDS: APIXABAN 5 MG TABLET PO SCH ×2 (10:15→22:25)
[2022-01-08] MEDS: ASPIRIN 81 MG CHEWABLE TABLETS PO SCH (10:15)
[2022-01-08] MEDS: NICOTINE 7 MG/24 HOURS TOPICAL PATCH TD SCH (10:16)
[2022-01-08] MEDS: LIDOCAINE 5% TOPICAL PATCH TP SCH (10:16)
[2022-01-08] MEDS: PRENATAL VITAMINS W/ FOLIC ACID TABLET (FP) PO SCH (10:16)
[2022-01-08] MEDS: BUDESONIDE/FORMETEROL FUMARATE 160/4.5 mcg INHALER IH SCH ×2 (10:17→22:27)
[2022-01-08] MEDS: CARVEDILOL 25 MG TABLET (FP) PO SCH ×2 (11:32→22:25)
[2022-01-08] MEDS: FUROSEMIDE 40 MG TABLET (FP) PO SCH (11:33)
[2022-01-08] MEDS: THIAMINE HCL 100 MG TABLET (FP) PO SCH (22:25)
[2022-01-08] MEDS: ATORVASTATIN CA 40 MG TABLET (FP) PO SCH (22:25)
[2022-01-08] MEDS: MONTELUKAST NA 10 MG TABLET PO SCH (22:25)
[2022-01-08] MEDS: LIDOCAINE PATCH REMOVAL MC SCH (22:26)
[2022-01-08] MEDS: SENNOSIDES 8.6MG TABLET (FP) PO SCH (22:26)
[2022-01-09] MEDS: ACETAMINOPHEN 325 MG TABLET (FP) PO PRN (01:22)
[2022-01-09] MEDS: hydrOXYzine PAMOATE 25 MG CAPSULE (FP) PO PRN (01:22)
[2022-01-09] MEDS: AMOXICILLIN 500 MG CAPSULE (FP) PO SCH ×3 (07:01→21:18)
[2022-01-09] MEDS: hydrALAZINE HCL 50 MG TABLET (FP) PO SCH ×3 (07:01→21:18)
[2022-01-09] MEDS: NICOTINE 7 MG/24 HOURS TOPICAL PATCH TD SCH (10:31)
[2022-01-09] MEDS: ASPIRIN 81 MG CHEWABLE TABLETS PO SCH (10:31)
[2022-01-09] MEDS: FUROSEMIDE 40 MG TABLET (FP) PO SCH (10:31)
[2022-01-09] MEDS: CARVEDILOL 25 MG TABLET (FP) PO SCH ×2 (10:31→21:18)
[2022-01-09] MEDS: PRENATAL VITAMINS W/ FOLIC ACID TABLET (FP) PO SCH (10:31)
[2022-01-09] MEDS: APIXABAN 5 MG TABLET PO SCH ×2 (10:31→21:18)
[2022-01-09] MEDS: LIDOCAINE 5% TOPICAL PATCH TP SCH (10:32)
[2022-01-09] MEDS: BUDESONIDE/FORMETEROL FUMARATE 160/4.5 mcg INHALER IH SCH ×2 (10:32→21:20)
[2022-01-09] MEDS: LIDOCAINE PATCH REMOVAL MC SCH (21:19)
[2022-01-09] MEDS: ATORVASTATIN CA 40 MG TABLET (FP) PO SCH (21:19)
[2022-01-09] MEDS: SENNOSIDES 8.6MG TABLET (FP) PO SCH (21:20)
[2022-01-09] MEDS: THIAMINE HCL 100 MG TABLET (FP) PO SCH (21:21)
[2022-01-09] MEDS: MONTELUKAST NA 10 MG TABLET PO SCH (21:21)
[2022-01-09] MEDS: SUVOREXANT 15 MG TABLET PO PRN (21:22)
[2022-01-10] MEDS: AMOXICILLIN 500 MG CAPSULE (FP) PO SCH ×2 (06:51→14:50)
[2022-01-10] MEDS: hydrALAZINE HCL 50 MG TABLET (FP) PO SCH ×3 (06:52→21:12)
[2022-01-10] MEDS: LIDOCAINE 5% TOPICAL PATCH TP SCH (09:49)
[2022-01-10] MEDS: PRENATAL VITAMINS W/ FOLIC ACID TABLET (FP) PO SCH (09:49)
[2022-01-10] MEDS: NICOTINE 7 MG/24 HOURS TOPICAL PATCH TD SCH (09:49)
[2022-01-10] MEDS: BUDESONIDE/FORMETEROL FUMARATE 160/4.5 mcg INHALER IH SCH ×2 (09:50→21:13)
[2022-01-10] MEDS: APIXABAN 5 MG TABLET PO SCH ×2 (09:50→21:12)
[2022-01-10] MEDS: FUROSEMIDE 40 MG TABLET (FP) PO SCH (09:50)
[2022-01-10] MEDS: CARVEDILOL 25 MG TABLET (FP) PO SCH ×2 (09:50→21:12)
[2022-01-10] MEDS: ASPIRIN 81 MG CHEWABLE TABLETS PO SCH (09:50)
[2022-01-10] MEDS: SENNOSIDES 8.6MG TABLET (FP) PO SCH (21:12)
[2022-01-10] MEDS: THIAMINE HCL 100 MG TABLET (FP) PO SCH (21:13)
[2022-01-10] MEDS: ATORVASTATIN CA 40 MG TABLET (FP) PO SCH (21:13)
[2022-01-10] MEDS: MONTELUKAST NA 10 MG TABLET PO SCH (21:13)
[2022-01-10] MEDS: LIDOCAINE PATCH REMOVAL MC SCH (21:14)
[2022-01-10] MEDS: SUVOREXANT 15 MG TABLET PO PRN (21:14)
[2022-01-11] MEDS: hydrALAZINE HCL 50 MG TABLET (FP) PO SCH ×3 (06:07→21:22)
[2022-01-11] MEDS: PRENATAL VITAMINS W/ FOLIC ACID TABLET (FP) PO SCH (09:18)
[2022-01-11] MEDS: LIDOCAINE 5% TOPICAL PATCH TP SCH (09:18)
[2022-01-11] MEDS: NICOTINE 7 MG/24 HOURS TOPICAL PATCH TD SCH (09:19)
[2022-01-11] MEDS: CARVEDILOL 25 MG TABLET (FP) PO SCH ×2 (09:19→21:22)
[2022-01-11] MEDS: FUROSEMIDE 40 MG TABLET (FP) PO SCH (09:19)
[2022-01-11] MEDS: ASPIRIN 81 MG CHEWABLE TABLETS PO SCH (09:19)
[2022-01-11] MEDS: APIXABAN 5 MG TABLET PO SCH ×2 (09:19→21:22)
[2022-01-11] MEDS: BUDESONIDE/FORMETEROL FUMARATE 160/4.5 mcg INHALER IH SCH ×2 (09:20→21:23)
[2022-01-11] MEDS ORDERED: COLLOIDAL OATMEAL 1 BAR EACH TP PRN (09:27)
[2022-01-11] MEDS: THIAMINE HCL 100 MG TABLET (FP) PO SCH (21:22)
[2022-01-11] MEDS: SENNOSIDES 8.6MG TABLET (FP) PO SCH (21:22)
[2022-01-11] MEDS: ATORVASTATIN CA 40 MG TABLET (FP) PO SCH (21:22)
[2022-01-11] MEDS: MONTELUKAST NA 10 MG TABLET PO SCH (21:23)
[2022-01-11] MEDS: LIDOCAINE PATCH REMOVAL MC SCH (21:23)
[2022-01-11] MEDS: SUVOREXANT 15 MG TABLET PO PRN (21:24)
[2022-01-12] MEDS: hydrALAZINE HCL 50 MG TABLET (FP) PO SCH ×3 (06:18→21:03)
[2022-01-12] MEDS: PRENATAL VITAMINS W/ FOLIC ACID TABLET (FP) PO SCH (09:56)
[2022-01-12] MEDS: CARVEDILOL 25 MG TABLET (FP) PO SCH ×2 (09:57→21:03)
[2022-01-12] MEDS: ASPIRIN 81 MG CHEWABLE TABLETS PO SCH (09:57)
[2022-01-12] MEDS: LIDOCAINE 5% TOPICAL PATCH TP SCH (09:57)
[2022-01-12] MEDS: FUROSEMIDE 40 MG TABLET (FP) PO SCH (09:57)
[2022-01-12] MEDS: APIXABAN 5 MG TABLET PO SCH ×2 (09:57→21:03)
[2022-01-12] MEDS: BUDESONIDE/FORMETEROL FUMARATE 160/4.5 mcg INHALER IH SCH ×2 (09:58→21:04)
[2022-01-12] MEDS: NICOTINE 7 MG/24 HOURS TOPICAL PATCH TD SCH (09:58)
[2022-01-12] MEDS: THIAMINE HCL 100 MG TABLET (FP) PO SCH (21:03)
[2022-01-12] MEDS: ATORVASTATIN CA 40 MG TABLET (FP) PO SCH (21:03)
[2022-01-12] MEDS: MONTELUKAST NA 10 MG TABLET PO SCH (21:04)
[2022-01-12] MEDS: SENNOSIDES 8.6MG TABLET (FP) PO SCH (21:04)
[2022-01-12] MEDS: LIDOCAINE PATCH REMOVAL MC SCH (21:04)
[2022-01-12] MEDS ORDERED: SUVOREXANT 20 MG TABLET PO PRN (22:00)
[2022-01-13] MEDS: hydrALAZINE HCL 50 MG TABLET (FP) PO SCH ×3 (07:07→21:22)
[2022-01-13] MEDS: ASPIRIN 81 MG CHEWABLE TABLETS PO SCH (10:00)
[2022-01-13] MEDS: FUROSEMIDE 40 MG TABLET (FP) PO SCH (10:00)
[2022-01-13] MEDS: APIXABAN 5 MG TABLET PO SCH ×2 (10:00→21:23)
[2022-01-13] MEDS: CARVEDILOL 25 MG TABLET (FP) PO SCH ×2 (10:00→21:22)
[2022-01-13] MEDS: PRENATAL VITAMINS W/ FOLIC ACID TABLET (FP) PO SCH (10:00)
[2022-01-13] MEDS: LIDOCAINE 5% TOPICAL PATCH TP SCH (10:01)
[2022-01-13] MEDS: BUDESONIDE/FORMETEROL FUMARATE 160/4.5 mcg INHALER IH SCH ×2 (10:01→22:12)
[2022-01-13] MEDS: NICOTINE 7 MG/24 HOURS TOPICAL PATCH TD SCH (10:01)
[2022-01-13] MEDS: ACETAMINOPHEN 325 MG TABLET (FP) PO PRN (10:03)
[2022-01-13] MEDS: ATORVASTATIN CA 40 MG TABLET (FP) PO SCH (21:22)
[2022-01-13] MEDS: MELATONIN 5 MG TABLETS PO PRN (21:22)
[2022-01-13] MEDS: LIDOCAINE PATCH REMOVAL MC SCH (21:23)
[2022-01-13] MEDS: traZODone HCL 50 MG TABLET (FP) PO SCH (21:23)
[2022-01-13] MEDS: MONTELUKAST NA 10 MG TABLET PO SCH (22:12)
[2022-01-13] MEDS: SENNOSIDES 8.6MG TABLET (FP) PO SCH (22:12)
[2022-01-13] MEDS: THIAMINE HCL 100 MG TABLET (FP) PO SCH (22:13)
[2022-01-14] MEDS: hydrALAZINE HCL 50 MG TABLET (FP) PO SCH ×3 (07:18→21:55)
[2022-01-14] MEDS: PRENATAL VITAMINS W/ FOLIC ACID TABLET (FP) PO SCH (09:57)
[2022-01-14] MEDS: LIDOCAINE 5% TOPICAL PATCH TP SCH (09:58)
[2022-01-14] MEDS: FUROSEMIDE 40 MG TABLET (FP) PO SCH (09:58)
[2022-01-14] MEDS: CARVEDILOL 25 MG TABLET (FP) PO SCH ×2 (09:58→21:55)
[2022-01-14] MEDS: ASPIRIN 81 MG CHEWABLE TABLETS PO SCH (09:58)
[2022-01-14] MEDS: APIXABAN 5 MG TABLET PO SCH ×2 (09:58→21:55)
[2022-01-14] MEDS: NICOTINE 7 MG/24 HOURS TOPICAL PATCH TD SCH (09:59)
[2022-01-14] MEDS: ACETAMINOPHEN 325 MG TABLET (FP) PO PRN (09:59)
[2022-01-14] MEDS: BUDESONIDE/FORMETEROL FUMARATE 160/4.5 mcg INHALER IH SCH ×2 (09:59→21:54)
[2022-01-14] MEDS: SENNOSIDES 8.6MG TABLET (FP) PO SCH (21:54)
[2022-01-14] MEDS: THIAMINE HCL 100 MG TABLET (FP) PO SCH (21:54)
[2022-01-14] MEDS: MONTELUKAST NA 10 MG TABLET PO SCH (21:54)
[2022-01-14] MEDS: ATORVASTATIN CA 40 MG TABLET (FP) PO SCH (21:54)
[2022-01-14] MEDS: LIDOCAINE PATCH REMOVAL MC SCH (21:55)
[2022-01-14] MEDS: traZODone HCL 50 MG TABLET (FP) PO SCH (21:55)
[2022-01-14] MEDS: MELATONIN 5 MG TABLETS PO PRN (21:56)
[2022-01-15] MEDS: hydrALAZINE HCL 50 MG TABLET (FP) PO SCH ×3 (06:44→21:17)
[2022-01-15] MEDS: LIDOCAINE 5% TOPICAL PATCH TP SCH (10:06)
[2022-01-15] MEDS: NICOTINE 7 MG/24 HOURS TOPICAL PATCH TD SCH (10:06)
[2022-01-15] MEDS: PRENATAL VITAMINS W/ FOLIC ACID TABLET (FP) PO SCH (10:06)
[2022-01-15] MEDS: FUROSEMIDE 40 MG TABLET (FP) PO SCH (10:07)
[2022-01-15] MEDS: CARVEDILOL 25 MG TABLET (FP) PO SCH ×2 (10:07→21:17)
[2022-01-15] MEDS: BUDESONIDE/FORMETEROL FUMARATE 160/4.5 mcg INHALER IH SCH ×2 (10:07→21:20)
[2022-01-15] MEDS: APIXABAN 5 MG TABLET PO SCH ×2 (10:07→21:17)
[2022-01-15] MEDS: ASPIRIN 81 MG CHEWABLE TABLETS PO SCH (10:07)
[2022-01-15] MEDS: ATORVASTATIN CA 40 MG TABLET (FP) PO SCH (21:16)
[2022-01-15] MEDS: MONTELUKAST NA 10 MG TABLET PO SCH (21:17)
[2022-01-15] MEDS: traZODone HCL 50 MG TABLET (FP) PO SCH (21:17)
[2022-01-15] MEDS: THIAMINE HCL 100 MG TABLET (FP) PO SCH (21:17)
[2022-01-15] MEDS: MELATONIN 5 MG TABLETS PO PRN (21:18)
[2022-01-15] MEDS: SENNOSIDES 8.6MG TABLET (FP) PO SCH (21:18)
[2022-01-15] MEDS: hydrOXYzine PAMOATE 25 MG CAPSULE (FP) PO PRN (21:18)
[2022-01-15] MEDS: LIDOCAINE PATCH REMOVAL MC SCH (21:19)
[2022-01-16] MEDS: hydrALAZINE HCL 50 MG TABLET (FP) PO SCH ×3 (07:00→21:21)
[2022-01-16] MEDS: PRENATAL VITAMINS W/ FOLIC ACID TABLET (FP) PO SCH (10:29)
[2022-01-16] MEDS: NICOTINE 7 MG/24 HOURS TOPICAL PATCH TD SCH (10:29)
[2022-01-16] MEDS: LIDOCAINE 5% TOPICAL PATCH TP SCH (10:30)
[2022-01-16] MEDS: FUROSEMIDE 40 MG TABLET (FP) PO SCH (10:30)
[2022-01-16] MEDS: CARVEDILOL 25 MG TABLET (FP) PO SCH ×2 (10:30→21:20)
[2022-01-16] MEDS: BUDESONIDE/FORMETEROL FUMARATE 160/4.5 mcg INHALER IH SCH ×2 (10:30→21:21)
[2022-01-16] MEDS: ASPIRIN 81 MG CHEWABLE TABLETS PO SCH (10:30)
[2022-01-16] MEDS: ACETAMINOPHEN 325 MG TABLET (FP) PO PRN (10:31)
[2022-01-16] MEDS: APIXABAN 5 MG TABLET PO SCH ×2 (10:31→21:20)
[2022-01-16] MEDS: MONTELUKAST NA 10 MG TABLET PO SCH (21:20)
[2022-01-16] MEDS: ATORVASTATIN CA 40 MG TABLET (FP) PO SCH (21:20)
[2022-01-16] MEDS: traZODone HCL 50 MG TABLET (FP) PO SCH (21:21)
[2022-01-16] MEDS: SENNOSIDES 8.6MG TABLET (FP) PO SCH (21:21)
[2022-01-16] MEDS: THIAMINE HCL 100 MG TABLET (FP) PO SCH (21:21)
[2022-01-16] MEDS: LIDOCAINE PATCH REMOVAL MC SCH (21:23)
[2022-01-17] MEDS: hydrALAZINE HCL 50 MG TABLET (FP) PO SCH ×3 (06:36→21:28)
[2022-01-17] MEDS: NICOTINE 7 MG/24 HOURS TOPICAL PATCH TD SCH (09:54)
[2022-01-17] MEDS: PRENATAL VITAMINS W/ FOLIC ACID TABLET (FP) PO SCH (09:54)
[2022-01-17] MEDS: LIDOCAINE 5% TOPICAL PATCH TP SCH (09:54)
[2022-01-17] MEDS: ASPIRIN 81 MG CHEWABLE TABLETS PO SCH (09:55)
[2022-01-17] MEDS: APIXABAN 5 MG TABLET PO SCH ×2 (09:55→21:28)
[2022-01-17] MEDS: CARVEDILOL 25 MG TABLET (FP) PO SCH ×2 (09:55→21:28)
[2022-01-17] MEDS: BUDESONIDE/FORMETEROL FUMARATE 160/4.5 mcg INHALER IH SCH ×2 (09:55→21:29)
[2022-01-17] MEDS: FUROSEMIDE 40 MG TABLET (FP) PO SCH (09:55)
[2022-01-17] MEDS: SENNOSIDES 8.6MG TABLET (FP) PO SCH (21:28)
[2022-01-17] MEDS: THIAMINE HCL 100 MG TABLET (FP) PO SCH (21:28)
[2022-01-17] MEDS: ATORVASTATIN CA 40 MG TABLET (FP) PO SCH (21:28)
[2022-01-17] MEDS: MONTELUKAST NA 10 MG TABLET PO SCH (21:28)
[2022-01-17] MEDS: LIDOCAINE PATCH REMOVAL MC SCH (21:28)
[2022-01-17] MEDS: traZODone HCL 50 MG TABLET (FP) PO SCH (21:28)
[2022-01-17] MEDS: MELATONIN 5 MG TABLETS PO PRN (21:31)
[2022-01-18] MEDS: hydrALAZINE HCL 50 MG TABLET (FP) PO SCH (06:47)
[2022-01-18] MEDS: hydrOXYzine PAMOATE 25 MG CAPSULE (FP) PO PRN (06:47)
[2022-01-18 07:47] VITALS: TEMP 97.5
[2022-01-18] MEDS: APIXABAN 5 MG TABLET PO SCH (09:11)
[2022-01-18] MEDS: PRENATAL VITAMINS W/ FOLIC ACID TABLET (FP) PO SCH (09:11)
[2022-01-18] MEDS: FUROSEMIDE 40 MG TABLET (FP) PO SCH (09:11)
[2022-01-18] MEDS: CARVEDILOL 25 MG TABLET (FP) PO SCH (09:11)
[2022-01-18] MEDS: BUDESONIDE/FORMETEROL FUMARATE 160/4.5 mcg INHALER IH SCH (09:11)
[2022-01-18] MEDS: ASPIRIN 81 MG CHEWABLE TABLETS PO SCH (09:11)
[2022-01-18] MEDS: LIDOCAINE 5% TOPICAL PATCH TP SCH (09:12)
[2022-01-18] MEDS: NICOTINE 7 MG/24 HOURS TOPICAL PATCH TD SCH (09:12)
[2022-01-18 09:56] VITALS: BP 121/87; PULSE 92
== END 2022-01-18 09:30 | disposition home or self-care (01) | DRG 772 ==
LOC: YASAS 13:39 → Y5N 13:40
PROVIDERS: ADMIT Allergy & Immunology; ATTEND Allergy & Immunology
PROC: HZ42ZZZ Group Counseling for Substance Abuse Treatment, Cognitive-Behavioral (ICD-10-PCS; principal; 2021-12-28)
DX: F10.20 Alcohol dependence, uncomplicated (principal); F14.20 Cocaine dependence, uncomplicated; F12.20 Cannabis dependence, uncomplicated; F17.210 Nicotine dependence, cigarettes, uncomplicated; F31.9 Bipolar disorder, unspecified; E78.5 Hyperlipidemia, unspecified; I25.10 Atherosclerotic heart disease of native coronary artery without angina pectoris; I10 Essential (primary) hypertension; G47.30 Sleep apnea, unspecified; J45.909 Unspecified asthma, uncomplicated; K08.89 Other specified disorders of teeth and supporting structures; K05.10 Chronic gingivitis, plaque induced; Z95.5 Presence of coronary angioplasty implant and graft; I25.2 Old myocardial infarction; Z95.2 Presence of prosthetic heart valve; Z79.01 Long term (current) use of anticoagulants; Z59.00 Homelessness unspecified; Z86.11 Personal history of tuberculosis; Z56.0 Unemployment, unspecified
CPT/HCPCS: 0241U-QW; 87807; C9803-CS; U0003; U0005

== ENCOUNTER 2022-04-26 15:34 | Inpatient (IN) | payer OTHER ==
[2022-04-26 17:03] VITALS: RESP 18; BMI 29.8
[2022-04-26] MEDS ORDERED: LOPERAMIDE HCL 2 MG CAPSULE PO PRN (18:20)
[2022-04-26] MEDS ORDERED: P-EPHED 60MG/TRIPROLIDI 2.5MG TABLET PO PRN (18:20)
[2022-04-26] MEDS ORDERED: guaiFENesin 200 MG/10 ML 10 ML UNIT-DOSE CUPS PO PRN (18:20)
[2022-04-26] MEDS ORDERED: MAG HYDROX/AL HYDROX/SIMETH 30 ML UNIT-DOSE CUP PO PRN (18:20)
[2022-04-26] MEDS ORDERED: MAGNESIUM CITRATE 300 ML BOTTLE PO PRN (18:20)
[2022-04-26] MEDS ORDERED: NICOTINE 10 MG CARTRIDGE (INHALER) IH PRN (18:20)
[2022-04-26] MEDS ORDERED: MAGNESIUM HYDROX 2400MG/30ML ORAL SUSPENSION 30 ML CUP PO PRN (18:20)
[2022-04-26] MEDS ORDERED: IBUPROFEN 400 MG TABLET (FP) PO PRN (18:20)
[2022-04-26] MEDS: MELATONIN 5 MG TABLETS PO SCH (21:06)
[2022-04-26] MEDS: THIAMINE HCL 100 MG TABLET (FP) PO SCH (21:06)
[2022-04-27] MEDS ORDERED: ALBUTEROL SO4 HFA INHALER IH PRN (08:16)
[2022-04-27] MEDS: FUROSEMIDE 40 MG TABLET (FP) PO SCH (09:50)
[2022-04-27] MEDS: CARVEDILOL 25 MG TABLET (FP) PO SCH ×2 (09:50→21:12)
[2022-04-27] MEDS: ASPIRIN 81 MG CHEWABLE TABLETS PO SCH (09:50)
[2022-04-27] MEDS: NICOTINE 7 MG/24 HOURS TOPICAL PATCH TD SCH (09:50)
[2022-04-27] MEDS: PRENATAL VITAMINS W/ FOLIC ACID TABLET (FP) PO SCH (09:50)
[2022-04-27] MEDS: BUDESONIDE/FORMETEROL FUMARATE 160/4.5 mcg INHALER IH SCH ×2 (10:00→21:40)
[2022-04-27 11:01] LABS: CALCIUM 8.3 mg/dL (8.5-10.1)
[2022-04-27 11:02] LABS: ALBUMIN 3.3 g/dl (3.4-5.0); BLOOD UREA NITROGEN 32.7 mg/dL (7-18)
[2022-04-27 11:04] LABS: CREATININE 1.1 mg/dL (0.55-1.3)
[2022-04-27 11:05] LABS: BILIRUBIN,TOTAL 0.6 mg/dL (0.2-1); HEMATOCRIT 37.6 % (35.4-49); HEMOGLOBIN 12.3 GM/dL (11.7-16.9); MCH 28.6 pg (25.7-33.7); MCHC 32.6 g/dl (32.0-35.9); MEAN CELL VOLUME 87.9 fl (80-96); PLATELET COUNT 144 10^3/uL (134-434); RBC 4.28 M/mm3 (4.00-5.60); TOT PROT 6.9 g/dl (6.4-8.2); WHITE BLOOD COUNT 3.9 K/mm3 (4.0-10.0)
[2022-04-27] MEDS: GABAPENTIN 300 MG CAPSULE PO SCH ×2 (14:00→21:12)
[2022-04-27] MEDS: hydrALAZINE HCL 25 MG TABLET (FP) PO SCH ×2 (15:53→21:12)
[2022-04-27] MEDS: APIXABAN 5 MG TABLET PO SCH ×2 (15:54→21:12)
[2022-04-27] MEDS: MELATONIN 5 MG TABLETS PO SCH (21:12)
[2022-04-27] MEDS: THIAMINE HCL 100 MG TABLET (FP) PO SCH (21:12)
[2022-04-27] MEDS ORDERED: ATORVASTATIN CA 40 MG TABLET (FP) ONE (21:34)
[2022-04-27] MEDS: QUEtiapine FUMARATE 100 MG TABLET (FP) PO SCH (21:35)
[2022-04-27] MEDS: ATORVASTATIN CA 80 MG TABLET (FP) PO SCH (21:44)
[2022-04-27] MEDS: MONTELUKAST NA 10 MG TABLET PO SCH (21:44)
[2022-04-28] MEDS: hydrALAZINE HCL 25 MG TABLET (FP) PO SCH ×3 (06:40→21:18)
[2022-04-28] MEDS: GABAPENTIN 300 MG CAPSULE PO SCH ×3 (06:40→21:19)
[2022-04-28] MEDS: PRENATAL VITAMINS W/ FOLIC ACID TABLET (FP) PO SCH (09:47)
[2022-04-28] MEDS: FUROSEMIDE 40 MG TABLET (FP) PO SCH (09:47)
[2022-04-28] MEDS: ASPIRIN 81 MG CHEWABLE TABLETS PO SCH (09:47)
[2022-04-28] MEDS: CARVEDILOL 25 MG TABLET (FP) PO SCH ×2 (09:47→21:18)
[2022-04-28] MEDS: APIXABAN 5 MG TABLET PO SCH ×2 (09:47→21:19)
[2022-04-28] MEDS: BUDESONIDE/FORMETEROL FUMARATE 160/4.5 mcg INHALER IH SCH ×2 (09:47→21:38)
[2022-04-28] MEDS: NICOTINE 7 MG/24 HOURS TOPICAL PATCH TD SCH (09:48)
[2022-04-28] MEDS: QUEtiapine FUMARATE 100 MG TABLET (FP) PO SCH (21:18)
[2022-04-28] MEDS: MELATONIN 5 MG TABLETS PO SCH (21:18)
[2022-04-28] MEDS: THIAMINE HCL 100 MG TABLET (FP) PO SCH (21:19)
[2022-04-28] MEDS: ATORVASTATIN CA 80 MG TABLET (FP) PO SCH (21:19)
[2022-04-28] MEDS: MONTELUKAST NA 10 MG TABLET PO SCH (21:19)
[2022-04-28] MEDS: hydrOXYzine PAMOATE 25 MG CAPSULE (FP) PO PRN (21:20)
[2022-04-29] MEDS: GABAPENTIN 300 MG CAPSULE PO SCH ×3 (06:23→21:10)
[2022-04-29] MEDS: hydrALAZINE HCL 25 MG TABLET (FP) PO SCH ×3 (07:24→21:10)
[2022-04-29] MEDS: FUROSEMIDE 40 MG TABLET (FP) PO SCH (10:12)
[2022-04-29] MEDS: CARVEDILOL 25 MG TABLET (FP) PO SCH ×2 (10:12→21:10)
[2022-04-29] MEDS: ASPIRIN 81 MG CHEWABLE TABLETS PO SCH (10:12)
[2022-04-29] MEDS: PRENATAL VITAMINS W/ FOLIC ACID TABLET (FP) PO SCH ×2 (10:12→10:15)
[2022-04-29] MEDS: APIXABAN 5 MG TABLET PO SCH ×2 (10:13→21:10)
[2022-04-29] MEDS: NICOTINE 7 MG/24 HOURS TOPICAL PATCH TD SCH (10:13)
[2022-04-29] MEDS: BUDESONIDE/FORMETEROL FUMARATE 160/4.5 mcg INHALER IH SCH ×2 (10:13→22:57)
[2022-04-29] MEDS: ACETAMINOPHEN 325 MG TABLET (FP) PO PRN (16:44)
[2022-04-29] MEDS: hydrOXYzine PAMOATE 25 MG CAPSULE (FP) PO PRN ×2 (16:45→21:11)
[2022-04-29] MEDS: QUEtiapine FUMARATE 100 MG TABLET (FP) PO SCH (21:10)
[2022-04-29] MEDS: THIAMINE HCL 100 MG TABLET (FP) PO SCH (21:10)
[2022-04-29] MEDS: ATORVASTATIN CA 80 MG TABLET (FP) PO SCH (21:10)
[2022-04-29] MEDS: MELATONIN 5 MG TABLETS PO SCH (21:11)
[2022-04-29] MEDS: MONTELUKAST NA 10 MG TABLET PO SCH (21:12)
[2022-04-30] MEDS: GABAPENTIN 300 MG CAPSULE PO SCH ×3 (06:14→21:05)
[2022-04-30] MEDS: hydrALAZINE HCL 25 MG TABLET (FP) PO SCH ×3 (06:14→21:05)
[2022-04-30] MEDS: CARVEDILOL 25 MG TABLET (FP) PO SCH ×2 (10:00→21:06)
[2022-04-30] MEDS: FUROSEMIDE 40 MG TABLET (FP) PO SCH (10:00)
[2022-04-30] MEDS: ASPIRIN 81 MG CHEWABLE TABLETS PO SCH (10:00)
[2022-04-30] MEDS: APIXABAN 5 MG TABLET PO SCH ×2 (10:00→21:07)
[2022-04-30] MEDS: BUDESONIDE/FORMETEROL FUMARATE 160/4.5 mcg INHALER IH SCH ×2 (10:01→21:45)
[2022-04-30] MEDS: PRENATAL VITAMINS W/ FOLIC ACID TABLET (FP) PO SCH (10:01)
[2022-04-30] MEDS: NICOTINE 7 MG/24 HOURS TOPICAL PATCH TD SCH (10:01)
[2022-04-30] MEDS: hydrOXYzine PAMOATE 25 MG CAPSULE (FP) PO PRN (10:02)
[2022-04-30] MEDS: ACETAMINOPHEN 325 MG TABLET (FP) PO PRN (17:40)
[2022-04-30] MEDS ORDERED: ATORVASTATIN CA 40 MG TABLET (FP) ONE (19:05)
[2022-04-30] MEDS: MELATONIN 5 MG TABLETS PO SCH (21:05)
[2022-04-30] MEDS: ATORVASTATIN CA 80 MG TABLET (FP) PO SCH (21:05)
[2022-04-30] MEDS: THIAMINE HCL 100 MG TABLET (FP) PO SCH (21:06)
[2022-04-30] MEDS: MONTELUKAST NA 10 MG TABLET PO SCH (21:06)
[2022-04-30] MEDS: QUEtiapine FUMARATE 100 MG TABLET (FP) PO SCH (21:07)
[2022-05-01] MEDS: hydrALAZINE HCL 25 MG TABLET (FP) PO SCH ×3 (06:49→21:19)
[2022-05-01] MEDS: GABAPENTIN 300 MG CAPSULE PO SCH ×3 (06:49→21:19)
[2022-05-01] MEDS: ASPIRIN 81 MG CHEWABLE TABLETS PO SCH (10:02)
[2022-05-01] MEDS: PRENATAL VITAMINS W/ FOLIC ACID TABLET (FP) PO SCH (10:02)
[2022-05-01] MEDS: NICOTINE 7 MG/24 HOURS TOPICAL PATCH TD SCH (10:02)
[2022-05-01] MEDS: FUROSEMIDE 40 MG TABLET (FP) PO SCH (10:02)
[2022-05-01] MEDS: CARVEDILOL 25 MG TABLET (FP) PO SCH ×2 (10:02→21:19)
[2022-05-01] MEDS: BUDESONIDE/FORMETEROL FUMARATE 160/4.5 mcg INHALER IH SCH ×2 (10:02→21:21)
[2022-05-01] MEDS: APIXABAN 5 MG TABLET PO SCH ×2 (10:03→21:19)
[2022-05-01] MEDS: hydrOXYzine PAMOATE 25 MG CAPSULE (FP) PO PRN (17:16)
[2022-05-01] MEDS: MONTELUKAST NA 10 MG TABLET PO SCH (21:19)
[2022-05-01] MEDS: THIAMINE HCL 100 MG TABLET (FP) PO SCH (21:19)
[2022-05-01] MEDS: ATORVASTATIN CA 80 MG TABLET (FP) PO SCH (21:19)
[2022-05-01] MEDS: MELATONIN 5 MG TABLETS PO SCH (21:20)
[2022-05-01] MEDS: QUEtiapine FUMARATE 200 MG TABLET PO SCH (21:23)
[2022-05-02] MEDS: GABAPENTIN 300 MG CAPSULE PO SCH ×3 (06:52→21:16)
[2022-05-02] MEDS: hydrALAZINE HCL 25 MG TABLET (FP) PO SCH ×3 (06:52→21:16)
[2022-05-02] MEDS: ASPIRIN 81 MG CHEWABLE TABLETS PO SCH (09:55)
[2022-05-02] MEDS: FUROSEMIDE 40 MG TABLET (FP) PO SCH (09:55)
[2022-05-02] MEDS: NICOTINE 7 MG/24 HOURS TOPICAL PATCH TD SCH (09:55)
[2022-05-02] MEDS: BUDESONIDE/FORMETEROL FUMARATE 160/4.5 mcg INHALER IH SCH ×2 (09:55→21:36)
[2022-05-02] MEDS: PRENATAL VITAMINS W/ FOLIC ACID TABLET (FP) PO SCH (09:55)
[2022-05-02] MEDS: APIXABAN 5 MG TABLET PO SCH ×2 (09:55→21:17)
[2022-05-02] MEDS: CARVEDILOL 25 MG TABLET (FP) PO SCH ×2 (09:55→21:16)
[2022-05-02 14:08] LABS: URINE APPEARANCE CLEAR; URINE BILIRUBIN NEGATIVE (NEGATIVE); URINE COLOR YELLOW; URINE GLUCOSE (UA) NEGATIVE (NEGATIVE); URINE KETONE NEGATIVE (NEGATIVE); URINE LEUK ESTERASE NEGATIVE (NEGATIVE); URINE NITRITE NEGATIVE (NEGATIVE); URINE PROTEIN TRACE (NEGATIVE); URINE UROBILINOGEN 0.2 mg/dL (0.2-1.0)
[2022-05-02] MEDS: THIAMINE HCL 100 MG TABLET (FP) PO SCH (21:16)
[2022-05-02] MEDS: MELATONIN 5 MG TABLETS PO SCH (21:16)
[2022-05-02] MEDS: QUEtiapine FUMARATE 200 MG TABLET PO SCH (21:16)
[2022-05-02] MEDS: MONTELUKAST NA 10 MG TABLET PO SCH (21:16)
[2022-05-02] MEDS: hydrOXYzine PAMOATE 25 MG CAPSULE (FP) PO PRN (21:17)
[2022-05-02] MEDS: ATORVASTATIN CA 80 MG TABLET (FP) PO SCH (21:17)
[2022-05-03] MEDS: hydrALAZINE HCL 25 MG TABLET (FP) PO SCH ×3 (06:16→21:08)
[2022-05-03] MEDS: GABAPENTIN 300 MG CAPSULE PO SCH ×3 (06:16→21:08)
[2022-05-03] MEDS: PRENATAL VITAMINS W/ FOLIC ACID TABLET (FP) PO SCH (09:51)
[2022-05-03] MEDS: APIXABAN 5 MG TABLET PO SCH ×2 (09:51→21:08)
[2022-05-03] MEDS: CARVEDILOL 25 MG TABLET (FP) PO SCH ×2 (09:51→21:08)
[2022-05-03] MEDS: FUROSEMIDE 40 MG TABLET (FP) PO SCH (09:51)
[2022-05-03] MEDS: ASPIRIN 81 MG CHEWABLE TABLETS PO SCH (09:51)
[2022-05-03] MEDS: BUDESONIDE/FORMETEROL FUMARATE 160/4.5 mcg INHALER IH SCH ×2 (09:52→21:16)
[2022-05-03] MEDS: NICOTINE 7 MG/24 HOURS TOPICAL PATCH TD SCH (09:52)
[2022-05-03] MEDS: THIAMINE HCL 100 MG TABLET (FP) PO SCH (21:08)
[2022-05-03] MEDS: QUEtiapine FUMARATE 200 MG TABLET PO SCH (21:08)
[2022-05-03] MEDS: ATORVASTATIN CA 80 MG TABLET (FP) PO SCH (21:09)
[2022-05-03] MEDS: MONTELUKAST NA 10 MG TABLET PO SCH (21:09)
[2022-05-03] MEDS: hydrOXYzine PAMOATE 25 MG CAPSULE (FP) PO PRN (21:09)
[2022-05-03] MEDS: MELATONIN 5 MG TABLETS PO SCH (21:11)
[2022-05-04] MEDS: hydrALAZINE HCL 25 MG TABLET (FP) PO SCH ×3 (06:38→21:24)
[2022-05-04] MEDS: GABAPENTIN 300 MG CAPSULE PO SCH ×3 (06:39→21:25)
[2022-05-04] MEDS: ASPIRIN 81 MG CHEWABLE TABLETS PO SCH (09:43)
[2022-05-04] MEDS: CARVEDILOL 25 MG TABLET (FP) PO SCH ×2 (09:43→21:24)
[2022-05-04] MEDS: PRENATAL VITAMINS W/ FOLIC ACID TABLET (FP) PO SCH (09:43)
[2022-05-04] MEDS: APIXABAN 5 MG TABLET PO SCH ×2 (09:43→21:24)
[2022-05-04] MEDS: NICOTINE 7 MG/24 HOURS TOPICAL PATCH TD SCH (09:44)
[2022-05-04] MEDS: BUDESONIDE/FORMETEROL FUMARATE 160/4.5 mcg INHALER IH SCH ×2 (09:44→21:56)
[2022-05-04] MEDS: FUROSEMIDE 40 MG TABLET (FP) PO SCH (09:45)
[2022-05-04] MEDS: MONTELUKAST NA 10 MG TABLET PO SCH (21:24)
[2022-05-04] MEDS: MELATONIN 5 MG TABLETS PO SCH (21:24)
[2022-05-04] MEDS: THIAMINE HCL 100 MG TABLET (FP) PO SCH (21:24)
[2022-05-04] MEDS: QUEtiapine FUMARATE 200 MG TABLET PO SCH (21:25)
[2022-05-04] MEDS: ATORVASTATIN CA 80 MG TABLET (FP) PO SCH (21:25)
[2022-05-04] MEDS: hydrOXYzine PAMOATE 25 MG CAPSULE (FP) PO PRN (21:25)
[2022-05-05] MEDS: hydrALAZINE HCL 25 MG TABLET (FP) PO SCH ×3 (06:20→21:16)
[2022-05-05] MEDS: GABAPENTIN 300 MG CAPSULE PO SCH ×3 (06:20→21:17)
[2022-05-05] MEDS: NICOTINE 7 MG/24 HOURS TOPICAL PATCH TD SCH (09:50)
[2022-05-05] MEDS: FUROSEMIDE 40 MG TABLET (FP) PO SCH (09:51)
[2022-05-05] MEDS: ACETAMINOPHEN 325 MG TABLET (FP) PO PRN (09:51)
[2022-05-05] MEDS: CARVEDILOL 25 MG TABLET (FP) PO SCH ×2 (09:51→21:16)
[2022-05-05] MEDS: ASPIRIN 81 MG CHEWABLE TABLETS PO SCH (09:51)
[2022-05-05] MEDS: APIXABAN 5 MG TABLET PO SCH ×2 (09:51→21:16)
[2022-05-05] MEDS: PRENATAL VITAMINS W/ FOLIC ACID TABLET (FP) PO SCH (09:51)
[2022-05-05] MEDS: BUDESONIDE/FORMETEROL FUMARATE 160/4.5 mcg INHALER IH SCH ×2 (09:56→21:17)
[2022-05-05] MEDS ORDERED: ATORVASTATIN CA 40 MG TABLET (FP) ONE (19:45)
[2022-05-05] MEDS: THIAMINE HCL 100 MG TABLET (FP) PO SCH (21:15)
[2022-05-05] MEDS: MONTELUKAST NA 10 MG TABLET PO SCH (21:16)
[2022-05-05] MEDS: ATORVASTATIN CA 80 MG TABLET (FP) PO SCH (21:16)
[2022-05-05] MEDS: QUEtiapine FUMARATE 200 MG TABLET PO SCH (21:16)
[2022-05-05] MEDS: MELATONIN 5 MG TABLETS PO SCH (21:17)
[2022-05-06] MEDS: hydrALAZINE HCL 25 MG TABLET (FP) PO SCH ×3 (06:10→21:19)
[2022-05-06] MEDS: GABAPENTIN 300 MG CAPSULE PO SCH ×3 (06:10→21:19)
[2022-05-06] MEDS: CARVEDILOL 25 MG TABLET (FP) PO SCH ×2 (09:48→21:19)
[2022-05-06] MEDS: APIXABAN 5 MG TABLET PO SCH ×2 (09:48→21:19)
[2022-05-06] MEDS: PRENATAL VITAMINS W/ FOLIC ACID TABLET (FP) PO SCH (09:48)
[2022-05-06] MEDS: FUROSEMIDE 40 MG TABLET (FP) PO SCH (09:48)
[2022-05-06] MEDS: ASPIRIN 81 MG CHEWABLE TABLETS PO SCH (09:48)
[2022-05-06] MEDS: BUDESONIDE/FORMETEROL FUMARATE 160/4.5 mcg INHALER IH SCH ×2 (09:50→21:20)
[2022-05-06] MEDS: NICOTINE 7 MG/24 HOURS TOPICAL PATCH TD SCH (09:50)
[2022-05-06] MEDS ORDERED: ATORVASTATIN CA 40 MG TABLET (FP) ONE (18:33)
[2022-05-06] MEDS: QUEtiapine FUMARATE 200 MG TABLET PO SCH (21:19)
[2022-05-06] MEDS: MONTELUKAST NA 10 MG TABLET PO SCH (21:19)
[2022-05-06] MEDS: ATORVASTATIN CA 80 MG TABLET (FP) PO SCH (21:19)
[2022-05-06] MEDS: THIAMINE HCL 100 MG TABLET (FP) PO SCH (21:19)
[2022-05-06] MEDS: MELATONIN 5 MG TABLETS PO SCH (21:19)
[2022-05-07] MEDS: GABAPENTIN 300 MG CAPSULE PO SCH ×3 (06:31→21:04)
[2022-05-07] MEDS: hydrALAZINE HCL 25 MG TABLET (FP) PO SCH ×3 (06:31→21:03)
[2022-05-07] MEDS: APIXABAN 5 MG TABLET PO SCH ×2 (10:01→21:03)
[2022-05-07] MEDS: ASPIRIN 81 MG CHEWABLE TABLETS PO SCH (10:01)
[2022-05-07] MEDS: CARVEDILOL 25 MG TABLET (FP) PO SCH ×2 (10:01→21:03)
[2022-05-07] MEDS: NICOTINE 7 MG/24 HOURS TOPICAL PATCH TD SCH (10:01)
[2022-05-07] MEDS: PRENATAL VITAMINS W/ FOLIC ACID TABLET (FP) PO SCH (10:01)
[2022-05-07] MEDS: BUDESONIDE/FORMETEROL FUMARATE 160/4.5 mcg INHALER IH SCH ×2 (10:02→21:05)
[2022-05-07] MEDS: FUROSEMIDE 40 MG TABLET (FP) PO SCH (11:30)
[2022-05-07] MEDS: MELATONIN 5 MG TABLETS PO SCH (21:03)
[2022-05-07] MEDS: THIAMINE HCL 100 MG TABLET (FP) PO SCH (21:03)
[2022-05-07] MEDS: MONTELUKAST NA 10 MG TABLET PO SCH (21:04)
[2022-05-07] MEDS: ATORVASTATIN CA 80 MG TABLET (FP) PO SCH (21:04)
[2022-05-07] MEDS: QUEtiapine FUMARATE 200 MG TABLET PO SCH (21:04)
[2022-05-08] MEDS: hydrALAZINE HCL 25 MG TABLET (FP) PO SCH ×3 (06:40→21:06)
[2022-05-08] MEDS: GABAPENTIN 300 MG CAPSULE PO SCH ×3 (06:40→21:06)
[2022-05-08] MEDS: ASPIRIN 81 MG CHEWABLE TABLETS PO SCH (10:09)
[2022-05-08] MEDS: CARVEDILOL 25 MG TABLET (FP) PO SCH ×2 (10:09→21:07)
[2022-05-08] MEDS: APIXABAN 5 MG TABLET PO SCH ×2 (10:09→21:07)
[2022-05-08] MEDS: FUROSEMIDE 40 MG TABLET (FP) PO SCH (10:09)
[2022-05-08] MEDS: NICOTINE 7 MG/24 HOURS TOPICAL PATCH TD SCH (10:09)
[2022-05-08] MEDS: BUDESONIDE/FORMETEROL FUMARATE 160/4.5 mcg INHALER IH SCH ×2 (10:09→21:20)
[2022-05-08] MEDS: PRENATAL VITAMINS W/ FOLIC ACID TABLET (FP) PO SCH (10:10)
[2022-05-08] MEDS: LIDOCAINE 5% TOPICAL PATCH TP SCH (10:25)
[2022-05-08] MEDS ORDERED: PENICILLIN G BENZATHINE 2,400,000 UNIT/4 ML PFS IM ONE (10:30)
[2022-05-08] MEDS ORDERED: ATORVASTATIN CA 40 MG TABLET (FP) ONE (18:53)
[2022-05-08] MEDS: MELATONIN 5 MG TABLETS PO SCH (21:05)
[2022-05-08] MEDS: MONTELUKAST NA 10 MG TABLET PO SCH (21:06)
[2022-05-08] MEDS: hydrOXYzine PAMOATE 25 MG CAPSULE (FP) PO PRN (21:06)
[2022-05-08] MEDS: THIAMINE HCL 100 MG TABLET (FP) PO SCH (21:07)
[2022-05-08] MEDS: QUEtiapine FUMARATE 200 MG TABLET PO SCH (21:07)
[2022-05-08] MEDS: ATORVASTATIN CA 80 MG TABLET (FP) PO SCH (21:08)
[2022-05-08] MEDS: METHYL SALICYLATE/MENTHOL OINT 30 GM TUBE TP SCH (21:20)
[2022-05-08] MEDS: LIDOCAINE PATCH REMOVAL MC SCH (21:24)
[2022-05-09] MEDS: hydrALAZINE HCL 25 MG TABLET (FP) PO SCH ×3 (06:16→21:14)
[2022-05-09] MEDS: GABAPENTIN 300 MG CAPSULE PO SCH ×3 (06:16→21:14)
[2022-05-09] MEDS: FUROSEMIDE 40 MG TABLET (FP) PO SCH (10:04)
[2022-05-09] MEDS: APIXABAN 5 MG TABLET PO SCH ×2 (10:04→21:15)
[2022-05-09] MEDS: CARVEDILOL 25 MG TABLET (FP) PO SCH ×2 (10:04→21:14)
[2022-05-09] MEDS: ASPIRIN 81 MG CHEWABLE TABLETS PO SCH (10:04)
[2022-05-09] MEDS: ACETAMINOPHEN 325 MG TABLET (FP) PO PRN ×2 (10:04→14:37)
[2022-05-09] MEDS: LIDOCAINE 5% TOPICAL PATCH TP SCH (10:05)
[2022-05-09] MEDS: PRENATAL VITAMINS W/ FOLIC ACID TABLET (FP) PO SCH (10:06)
[2022-05-09] MEDS: BUDESONIDE/FORMETEROL FUMARATE 160/4.5 mcg INHALER IH SCH ×2 (10:06→22:59)
[2022-05-09] MEDS: NICOTINE 7 MG/24 HOURS TOPICAL PATCH TD SCH (10:06)
[2022-05-09] MEDS: hydrOXYzine PAMOATE 25 MG CAPSULE (FP) PO PRN ×2 (14:38→21:13)
[2022-05-09] MEDS ORDERED: ATORVASTATIN CA 40 MG TABLET (FP) ONE (19:06)
[2022-05-09] MEDS: MELATONIN 5 MG TABLETS PO SCH (21:12)
[2022-05-09] MEDS: MONTELUKAST NA 10 MG TABLET PO SCH (21:14)
[2022-05-09] MEDS: THIAMINE HCL 100 MG TABLET (FP) PO SCH (21:14)
[2022-05-09] MEDS: ATORVASTATIN CA 80 MG TABLET (FP) PO SCH (21:14)
[2022-05-09] MEDS: QUEtiapine FUMARATE 200 MG TABLET PO SCH (21:15)
[2022-05-09] MEDS: METHYL SALICYLATE/MENTHOL OINT 30 GM TUBE TP SCH (22:58)
[2022-05-09] MEDS: LIDOCAINE PATCH REMOVAL MC SCH (22:59)
[2022-05-10] MEDS: GABAPENTIN 300 MG CAPSULE PO SCH ×3 (06:46→21:21)
[2022-05-10] MEDS: hydrALAZINE HCL 25 MG TABLET (FP) PO SCH ×3 (06:46→21:21)
[2022-05-10] MEDS: BUDESONIDE/FORMETEROL FUMARATE 160/4.5 mcg INHALER IH SCH ×2 (09:39→21:46)
[2022-05-10] MEDS: LIDOCAINE 5% TOPICAL PATCH TP SCH (09:39)
[2022-05-10] MEDS: PRENATAL VITAMINS W/ FOLIC ACID TABLET (FP) PO SCH (09:39)
[2022-05-10] MEDS: ACETAMINOPHEN 325 MG TABLET (FP) PO PRN (09:40)
[2022-05-10] MEDS: APIXABAN 5 MG TABLET PO SCH ×2 (09:41→21:21)
[2022-05-10] MEDS: CARVEDILOL 25 MG TABLET (FP) PO SCH ×2 (09:41→21:21)
[2022-05-10] MEDS: NICOTINE 7 MG/24 HOURS TOPICAL PATCH TD SCH (09:41)
[2022-05-10] MEDS: FUROSEMIDE 40 MG TABLET (FP) PO SCH (09:41)
[2022-05-10] MEDS: ASPIRIN 81 MG CHEWABLE TABLETS PO SCH (09:41)
[2022-05-10] MEDS: hydrOXYzine PAMOATE 25 MG CAPSULE (FP) PO PRN (09:42)
[2022-05-10] MEDS ORDERED: ATORVASTATIN CA 40 MG TABLET (FP) ONE (19:00)
[2022-05-10] MEDS: MONTELUKAST NA 10 MG TABLET PO SCH (21:21)
[2022-05-10] MEDS: QUEtiapine FUMARATE 200 MG TABLET PO SCH (21:21)
[2022-05-10] MEDS: ATORVASTATIN CA 80 MG TABLET (FP) PO SCH (21:21)
[2022-05-10] MEDS: THIAMINE HCL 100 MG TABLET (FP) PO SCH (21:21)
[2022-05-10] MEDS: METHYL SALICYLATE/MENTHOL OINT 30 GM TUBE TP SCH (21:21)
[2022-05-10] MEDS: LIDOCAINE PATCH REMOVAL MC SCH (21:22)
[2022-05-10] MEDS: MELATONIN 5 MG TABLETS PO SCH (21:22)
[2022-05-11] MEDS: GABAPENTIN 300 MG CAPSULE PO SCH ×3 (06:41→21:23)
[2022-05-11] MEDS: hydrALAZINE HCL 25 MG TABLET (FP) PO SCH ×3 (06:41→21:22)
[2022-05-11] MEDS: PRENATAL VITAMINS W/ FOLIC ACID TABLET (FP) PO SCH (09:46)
[2022-05-11] MEDS: ASPIRIN 81 MG CHEWABLE TABLETS PO SCH (09:46)
[2022-05-11] MEDS: NICOTINE 7 MG/24 HOURS TOPICAL PATCH TD SCH (09:47)
[2022-05-11] MEDS: CARVEDILOL 25 MG TABLET (FP) PO SCH ×2 (09:47→21:23)
[2022-05-11] MEDS: BUDESONIDE/FORMETEROL FUMARATE 160/4.5 mcg INHALER IH SCH ×2 (09:47→22:08)
[2022-05-11] MEDS: LIDOCAINE 5% TOPICAL PATCH TP SCH (09:47)
[2022-05-11] MEDS: APIXABAN 5 MG TABLET PO SCH ×2 (09:47→21:23)
[2022-05-11] MEDS: FUROSEMIDE 40 MG TABLET (FP) PO SCH (09:47)
[2022-05-11] MEDS: hydrOXYzine PAMOATE 25 MG CAPSULE (FP) PO PRN ×2 (09:48→21:24)
[2022-05-11] MEDS ORDERED: FAMOTIDINE 20 MG TABLET PO ONE (10:30)
[2022-05-11] MEDS ORDERED: ATORVASTATIN CA 40 MG TABLET (FP) ONE (20:32)
[2022-05-11] MEDS: THIAMINE HCL 100 MG TABLET (FP) PO SCH (21:22)
[2022-05-11] MEDS: MONTELUKAST NA 10 MG TABLET PO SCH (21:22)
[2022-05-11] MEDS: QUEtiapine FUMARATE 200 MG TABLET PO SCH (21:23)
[2022-05-11] MEDS: FAMOTIDINE 20 MG TABLET PO SCH (21:23)
[2022-05-11] MEDS: ATORVASTATIN CA 80 MG TABLET (FP) PO SCH (21:23)
[2022-05-11] MEDS: METHYL SALICYLATE/MENTHOL OINT 30 GM TUBE TP SCH (22:08)
[2022-05-11] MEDS: LIDOCAINE PATCH REMOVAL MC SCH (22:08)
[2022-05-11] MEDS: MELATONIN 5 MG TABLETS PO SCH (22:08)
[2022-05-12] MEDS: hydrALAZINE HCL 25 MG TABLET (FP) PO SCH ×3 (06:31→21:12)
[2022-05-12] MEDS: GABAPENTIN 300 MG CAPSULE PO SCH ×3 (06:31→21:12)
[2022-05-12] MEDS: LIDOCAINE 5% TOPICAL PATCH TP SCH (09:48)
[2022-05-12] MEDS: NICOTINE 7 MG/24 HOURS TOPICAL PATCH TD SCH (09:48)
[2022-05-12] MEDS: PRENATAL VITAMINS W/ FOLIC ACID TABLET (FP) PO SCH (09:48)
[2022-05-12] MEDS: APIXABAN 5 MG TABLET PO SCH ×2 (09:49→21:11)
[2022-05-12] MEDS: FUROSEMIDE 40 MG TABLET (FP) PO SCH (09:49)
[2022-05-12] MEDS: CARVEDILOL 25 MG TABLET (FP) PO SCH ×2 (09:49→21:11)
[2022-05-12] MEDS: ACETAMINOPHEN 325 MG TABLET (FP) PO PRN (09:49)
[2022-05-12] MEDS: ASPIRIN 81 MG CHEWABLE TABLETS PO SCH (09:49)
[2022-05-12] MEDS: BUDESONIDE/FORMETEROL FUMARATE 160/4.5 mcg INHALER IH SCH ×2 (09:49→21:12)
[2022-05-12] MEDS: FAMOTIDINE 20 MG TABLET PO SCH ×2 (09:49→21:11)
[2022-05-12] MEDS: MELATONIN 5 MG TABLETS PO SCH (21:10)
[2022-05-12] MEDS: ATORVASTATIN CA 80 MG TABLET (FP) PO SCH (21:10)
[2022-05-12] MEDS: QUEtiapine FUMARATE 200 MG TABLET PO SCH (21:11)
[2022-05-12] MEDS: MONTELUKAST NA 10 MG TABLET PO SCH (21:11)
[2022-05-12] MEDS: hydrOXYzine PAMOATE 25 MG CAPSULE (FP) PO PRN (21:11)
[2022-05-12] MEDS: THIAMINE HCL 100 MG TABLET (FP) PO SCH (21:12)
[2022-05-12] MEDS: METHYL SALICYLATE/MENTHOL OINT 30 GM TUBE TP SCH (21:49)
[2022-05-12] MEDS: LIDOCAINE PATCH REMOVAL MC SCH (22:26)
[2022-05-13] MEDS: GABAPENTIN 300 MG CAPSULE PO SCH ×3 (06:46→21:21)
[2022-05-13] MEDS: hydrALAZINE HCL 25 MG TABLET (FP) PO SCH ×3 (06:47→21:20)
[2022-05-13] MEDS: FUROSEMIDE 40 MG TABLET (FP) PO SCH (09:48)
[2022-05-13] MEDS: ASPIRIN 81 MG CHEWABLE TABLETS PO SCH (09:48)
[2022-05-13] MEDS: APIXABAN 5 MG TABLET PO SCH ×2 (09:48→21:21)
[2022-05-13] MEDS: CARVEDILOL 25 MG TABLET (FP) PO SCH ×2 (09:48→21:21)
[2022-05-13] MEDS: PRENATAL VITAMINS W/ FOLIC ACID TABLET (FP) PO SCH (09:48)
[2022-05-13] MEDS: hydrOXYzine PAMOATE 25 MG CAPSULE (FP) PO PRN (09:49)
[2022-05-13] MEDS: NICOTINE 7 MG/24 HOURS TOPICAL PATCH TD SCH (09:49)
[2022-05-13] MEDS: LIDOCAINE 5% TOPICAL PATCH TP SCH (09:49)
[2022-05-13] MEDS: FAMOTIDINE 20 MG TABLET PO SCH ×2 (09:49→21:21)
[2022-05-13] MEDS: BUDESONIDE/FORMETEROL FUMARATE 160/4.5 mcg INHALER IH SCH ×2 (09:49→22:21)
[2022-05-13] MEDS: THIAMINE HCL 100 MG TABLET (FP) PO SCH (21:20)
[2022-05-13] MEDS: MELATONIN 5 MG TABLETS PO SCH (21:20)
[2022-05-13] MEDS: ATORVASTATIN CA 80 MG TABLET (FP) PO SCH (21:21)
[2022-05-13] MEDS: QUEtiapine FUMARATE 200 MG TABLET PO SCH (21:21)
[2022-05-13] MEDS: METHYL SALICYLATE/MENTHOL OINT 30 GM TUBE TP SCH (21:21)
[2022-05-13] MEDS: MONTELUKAST NA 10 MG TABLET PO SCH (21:22)
[2022-05-13] MEDS: LIDOCAINE PATCH REMOVAL MC SCH (22:21)
[2022-05-14] MEDS: hydrALAZINE HCL 25 MG TABLET (FP) PO SCH ×3 (06:31→21:18)
[2022-05-14] MEDS: GABAPENTIN 300 MG CAPSULE PO SCH ×3 (06:31→21:17)
[2022-05-14] MEDS: ASPIRIN 81 MG CHEWABLE TABLETS PO SCH (10:09)
[2022-05-14] MEDS: LIDOCAINE 5% TOPICAL PATCH TP SCH (10:09)
[2022-05-14] MEDS: CARVEDILOL 25 MG TABLET (FP) PO SCH ×2 (10:09→21:18)
[2022-05-14] MEDS: PRENATAL VITAMINS W/ FOLIC ACID TABLET (FP) PO SCH (10:09)
[2022-05-14] MEDS: FUROSEMIDE 40 MG TABLET (FP) PO SCH (10:09)
[2022-05-14] MEDS: NICOTINE 7 MG/24 HOURS TOPICAL PATCH TD SCH (10:10)
[2022-05-14] MEDS: FAMOTIDINE 20 MG TABLET PO SCH ×2 (10:10→21:18)
[2022-05-14] MEDS: hydrOXYzine PAMOATE 25 MG CAPSULE (FP) PO PRN (10:11)
[2022-05-14] MEDS: ACETAMINOPHEN 325 MG TABLET (FP) PO PRN (10:11)
[2022-05-14] MEDS: BUDESONIDE/FORMETEROL FUMARATE 160/4.5 mcg INHALER IH SCH ×2 (11:14→21:19)
[2022-05-14] MEDS: APIXABAN 5 MG TABLET PO SCH ×2 (11:15→21:18)
[2022-05-14] MEDS ORDERED: ATORVASTATIN CA 40 MG TABLET (FP) ONE (19:23)
[2022-05-14] MEDS: THIAMINE HCL 100 MG TABLET (FP) PO SCH (21:17)
[2022-05-14] MEDS: MONTELUKAST NA 10 MG TABLET PO SCH (21:17)
[2022-05-14] MEDS: QUEtiapine FUMARATE 200 MG TABLET PO SCH (21:17)
[2022-05-14] MEDS: MELATONIN 5 MG TABLETS PO SCH (21:17)
[2022-05-14] MEDS: METHYL SALICYLATE/MENTHOL OINT 30 GM TUBE TP SCH (21:18)
[2022-05-14] MEDS: ATORVASTATIN CA 80 MG TABLET (FP) PO SCH (21:18)
[2022-05-14] MEDS: LIDOCAINE PATCH REMOVAL MC SCH (21:19)
[2022-05-15] MEDS: GABAPENTIN 300 MG CAPSULE PO SCH ×3 (06:39→21:19)
[2022-05-15] MEDS: hydrALAZINE HCL 25 MG TABLET (FP) PO SCH ×3 (06:39→21:20)
[2022-05-15] MEDS: BUDESONIDE/FORMETEROL FUMARATE 160/4.5 mcg INHALER IH SCH ×2 (09:41→21:25)
[2022-05-15] MEDS: PRENATAL VITAMINS W/ FOLIC ACID TABLET (FP) PO SCH (09:41)
[2022-05-15] MEDS: FUROSEMIDE 40 MG TABLET (FP) PO SCH (09:42)
[2022-05-15] MEDS: FAMOTIDINE 20 MG TABLET PO SCH ×2 (09:42→21:20)
[2022-05-15] MEDS: NICOTINE 7 MG/24 HOURS TOPICAL PATCH TD SCH (09:42)
[2022-05-15] MEDS: ASPIRIN 81 MG CHEWABLE TABLETS PO SCH (09:42)
[2022-05-15] MEDS: APIXABAN 5 MG TABLET PO SCH ×2 (09:42→21:21)
[2022-05-15] MEDS: CARVEDILOL 25 MG TABLET (FP) PO SCH ×2 (09:42→21:21)
[2022-05-15] MEDS: LIDOCAINE 5% TOPICAL PATCH TP SCH (09:42)
[2022-05-15] MEDS ORDERED: PENICILLIN G BENZATHINE 2,400,000 UNIT/4 ML PFS IM ONE (10:00)
[2022-05-15] MEDS: ACETAMINOPHEN 325 MG TABLET (FP) PO PRN (14:03)
[2022-05-15] MEDS: hydrOXYzine PAMOATE 25 MG CAPSULE (FP) PO PRN ×2 (14:03→21:19)
[2022-05-15] MEDS ORDERED: ATORVASTATIN CA 40 MG TABLET (FP) ONE (19:31)
[2022-05-15] MEDS: THIAMINE HCL 100 MG TABLET (FP) PO SCH (21:19)
[2022-05-15] MEDS: ATORVASTATIN CA 80 MG TABLET (FP) PO SCH (21:20)
[2022-05-15] MEDS: QUEtiapine FUMARATE 200 MG TABLET PO SCH (21:21)
[2022-05-15] MEDS: MONTELUKAST NA 10 MG TABLET PO SCH (21:21)
[2022-05-15] MEDS: METHYL SALICYLATE/MENTHOL OINT 30 GM TUBE TP SCH (21:24)
[2022-05-15] MEDS: LIDOCAINE PATCH REMOVAL MC SCH (21:24)
[2022-05-15] MEDS: MELATONIN 5 MG TABLETS PO SCH (21:25)
[2022-05-16] MEDS: hydrALAZINE HCL 25 MG TABLET (FP) PO SCH ×3 (06:50→21:22)
[2022-05-16] MEDS: GABAPENTIN 300 MG CAPSULE PO SCH ×3 (06:50→21:22)
[2022-05-16] MEDS: BUDESONIDE/FORMETEROL FUMARATE 160/4.5 mcg INHALER IH SCH ×2 (10:02→21:44)
[2022-05-16] MEDS: APIXABAN 5 MG TABLET PO SCH ×2 (10:02→21:21)
[2022-05-16] MEDS: CARVEDILOL 25 MG TABLET (FP) PO SCH ×2 (10:02→21:22)
[2022-05-16] MEDS: PRENATAL VITAMINS W/ FOLIC ACID TABLET (FP) PO SCH (10:02)
[2022-05-16] MEDS: FUROSEMIDE 40 MG TABLET (FP) PO SCH (10:03)
[2022-05-16] MEDS: FAMOTIDINE 20 MG TABLET PO SCH ×2 (10:03→21:22)
[2022-05-16] MEDS: ASPIRIN 81 MG CHEWABLE TABLETS PO SCH (10:03)
[2022-05-16] MEDS: NICOTINE 7 MG/24 HOURS TOPICAL PATCH TD SCH (10:04)
[2022-05-16] MEDS: LIDOCAINE 5% TOPICAL PATCH TP SCH (10:04)
[2022-05-16] MEDS ORDERED: ATORVASTATIN CA 40 MG TABLET (FP) ONE (19:29)
[2022-05-16] MEDS: THIAMINE HCL 100 MG TABLET (FP) PO SCH (21:20)
[2022-05-16] MEDS: ATORVASTATIN CA 80 MG TABLET (FP) PO SCH (21:21)
[2022-05-16] MEDS: QUEtiapine FUMARATE 200 MG TABLET PO SCH (21:22)
[2022-05-16] MEDS: MONTELUKAST NA 10 MG TABLET PO SCH (21:22)
[2022-05-16] MEDS: MELATONIN 5 MG TABLETS PO SCH (21:23)
[2022-05-16] MEDS: LIDOCAINE PATCH REMOVAL MC SCH (21:43)
[2022-05-16] MEDS: METHYL SALICYLATE/MENTHOL OINT 30 GM TUBE TP SCH (21:44)
[2022-05-17] MEDS: hydrALAZINE HCL 25 MG TABLET (FP) PO SCH ×3 (06:18→21:20)
[2022-05-17] MEDS: GABAPENTIN 300 MG CAPSULE PO SCH ×3 (06:18→21:20)
[2022-05-17] MEDS: PRENATAL VITAMINS W/ FOLIC ACID TABLET (FP) PO SCH (09:44)
[2022-05-17] MEDS: NICOTINE 7 MG/24 HOURS TOPICAL PATCH TD SCH (09:45)
[2022-05-17] MEDS: FAMOTIDINE 20 MG TABLET PO SCH ×2 (09:45→21:20)
[2022-05-17] MEDS: APIXABAN 5 MG TABLET PO SCH ×2 (09:45→21:20)
[2022-05-17] MEDS: ASPIRIN 81 MG CHEWABLE TABLETS PO SCH (09:45)
[2022-05-17] MEDS: FUROSEMIDE 40 MG TABLET (FP) PO SCH (09:45)
[2022-05-17] MEDS: LIDOCAINE 5% TOPICAL PATCH TP SCH (09:45)
[2022-05-17] MEDS: BUDESONIDE/FORMETEROL FUMARATE 160/4.5 mcg INHALER IH SCH ×2 (09:45→21:37)
[2022-05-17] MEDS: CARVEDILOL 25 MG TABLET (FP) PO SCH ×2 (09:45→21:20)
[2022-05-17] MEDS: ACETAMINOPHEN 325 MG TABLET (FP) PO PRN (09:47)
[2022-05-17] MEDS: hydrOXYzine PAMOATE 25 MG CAPSULE (FP) PO PRN ×2 (09:48→21:21)
[2022-05-17] MEDS ORDERED: ATORVASTATIN CA 40 MG TABLET (FP) ONE (19:46)
[2022-05-17] MEDS: ATORVASTATIN CA 80 MG TABLET (FP) PO SCH (21:19)
[2022-05-17] MEDS: QUEtiapine FUMARATE 200 MG TABLET PO SCH (21:20)
[2022-05-17] MEDS: MONTELUKAST NA 10 MG TABLET PO SCH (21:20)
[2022-05-17] MEDS: MELATONIN 5 MG TABLETS PO SCH (21:21)
[2022-05-17] MEDS: THIAMINE HCL 100 MG TABLET (FP) PO SCH (21:21)
[2022-05-17] MEDS: LIDOCAINE PATCH REMOVAL MC SCH (21:37)
[2022-05-17] MEDS: METHYL SALICYLATE/MENTHOL OINT 30 GM TUBE TP SCH (21:37)
[2022-05-18] MEDS: hydrALAZINE HCL 25 MG TABLET (FP) PO SCH ×3 (06:50→21:10)
[2022-05-18] MEDS: GABAPENTIN 300 MG CAPSULE PO SCH ×3 (06:50→21:12)
[2022-05-18] MEDS: NICOTINE 7 MG/24 HOURS TOPICAL PATCH TD SCH (09:57)
[2022-05-18] MEDS: PRENATAL VITAMINS W/ FOLIC ACID TABLET (FP) PO SCH (09:57)
[2022-05-18] MEDS: LIDOCAINE 5% TOPICAL PATCH TP SCH (09:57)
[2022-05-18] MEDS: CARVEDILOL 25 MG TABLET (FP) PO SCH ×2 (09:58→21:13)
[2022-05-18] MEDS: BUDESONIDE/FORMETEROL FUMARATE 160/4.5 mcg INHALER IH SCH ×2 (09:58→21:14)
[2022-05-18] MEDS: ASPIRIN 81 MG CHEWABLE TABLETS PO SCH (09:58)
[2022-05-18] MEDS: FAMOTIDINE 20 MG TABLET PO SCH ×2 (09:58→21:12)
[2022-05-18] MEDS: APIXABAN 5 MG TABLET PO SCH ×2 (09:58→21:13)
[2022-05-18] MEDS: FUROSEMIDE 40 MG TABLET (FP) PO SCH (12:27)
[2022-05-18] MEDS ORDERED: ATORVASTATIN CA 40 MG TABLET (FP) ONE (20:08)
[2022-05-18] MEDS: MONTELUKAST NA 10 MG TABLET PO SCH (21:12)
[2022-05-18] MEDS: QUEtiapine FUMARATE 200 MG TABLET PO SCH (21:12)
[2022-05-18] MEDS: THIAMINE HCL 100 MG TABLET (FP) PO SCH (21:12)
[2022-05-18] MEDS: ATORVASTATIN CA 80 MG TABLET (FP) PO SCH (21:12)
[2022-05-18] MEDS: hydrOXYzine PAMOATE 25 MG CAPSULE (FP) PO PRN (21:13)
[2022-05-18] MEDS: METHYL SALICYLATE/MENTHOL OINT 30 GM TUBE TP SCH (21:13)
[2022-05-18] MEDS: MELATONIN 5 MG TABLETS PO SCH (21:14)
[2022-05-18] MEDS: LIDOCAINE PATCH REMOVAL MC SCH (21:14)
[2022-05-19] MEDS: GABAPENTIN 300 MG CAPSULE PO SCH ×3 (06:25→22:06)
[2022-05-19] MEDS: hydrALAZINE HCL 25 MG TABLET (FP) PO SCH ×3 (06:25→22:05)
[2022-05-19] MEDS: CARVEDILOL 25 MG TABLET (FP) PO SCH ×2 (09:52→22:06)
[2022-05-19] MEDS: PRENATAL VITAMINS W/ FOLIC ACID TABLET (FP) PO SCH (09:52)
[2022-05-19] MEDS: APIXABAN 5 MG TABLET PO SCH ×2 (09:52→22:05)
[2022-05-19] MEDS: FAMOTIDINE 20 MG TABLET PO SCH ×2 (09:52→22:06)
[2022-05-19] MEDS: ASPIRIN 81 MG CHEWABLE TABLETS PO SCH (09:52)
[2022-05-19] MEDS: FUROSEMIDE 40 MG TABLET (FP) PO SCH (09:52)
[2022-05-19] MEDS: hydrOXYzine PAMOATE 25 MG CAPSULE (FP) PO PRN (09:53)
[2022-05-19] MEDS: LIDOCAINE 5% TOPICAL PATCH TP SCH (09:54)
[2022-05-19] MEDS: NICOTINE 7 MG/24 HOURS TOPICAL PATCH TD SCH (09:54)
[2022-05-19] MEDS: BUDESONIDE/FORMETEROL FUMARATE 160/4.5 mcg INHALER IH SCH ×2 (09:54→22:07)
[2022-05-19] MEDS ORDERED: ATORVASTATIN CA 40 MG TABLET (FP) ONE (20:17)
[2022-05-19] MEDS: ATORVASTATIN CA 80 MG TABLET (FP) PO SCH (22:05)
[2022-05-19] MEDS: THIAMINE HCL 100 MG TABLET (FP) PO SCH (22:06)
[2022-05-19] MEDS: QUEtiapine FUMARATE 200 MG TABLET PO SCH (22:06)
[2022-05-19] MEDS: MONTELUKAST NA 10 MG TABLET PO SCH (22:06)
[2022-05-19] MEDS: MELATONIN 5 MG TABLETS PO SCH (22:06)
[2022-05-19] MEDS: LIDOCAINE PATCH REMOVAL MC SCH (22:07)
[2022-05-19] MEDS: METHYL SALICYLATE/MENTHOL OINT 30 GM TUBE TP SCH (22:07)
[2022-05-20] MEDS: GABAPENTIN 300 MG CAPSULE PO SCH ×3 (07:00→21:15)
[2022-05-20] MEDS: hydrALAZINE HCL 25 MG TABLET (FP) PO SCH ×3 (07:00→21:14)
[2022-05-20] MEDS: CARVEDILOL 25 MG TABLET (FP) PO SCH ×2 (09:56→21:15)
[2022-05-20] MEDS: FUROSEMIDE 40 MG TABLET (FP) PO SCH (09:56)
[2022-05-20] MEDS: PRENATAL VITAMINS W/ FOLIC ACID TABLET (FP) PO SCH (09:56)
[2022-05-20] MEDS: FAMOTIDINE 20 MG TABLET PO SCH ×2 (09:56→21:15)
[2022-05-20] MEDS: APIXABAN 5 MG TABLET PO SCH ×2 (09:56→21:15)
[2022-05-20] MEDS: hydrOXYzine PAMOATE 25 MG CAPSULE (FP) PO PRN (09:56)
[2022-05-20] MEDS: ASPIRIN 81 MG CHEWABLE TABLETS PO SCH (09:56)
[2022-05-20] MEDS: LIDOCAINE 5% TOPICAL PATCH TP SCH (09:57)
[2022-05-20] MEDS: NICOTINE 7 MG/24 HOURS TOPICAL PATCH TD SCH (09:57)
[2022-05-20] MEDS: BUDESONIDE/FORMETEROL FUMARATE 160/4.5 mcg INHALER IH SCH ×2 (11:43→21:15)
[2022-05-20] MEDS ORDERED: ATORVASTATIN CA 40 MG TABLET (FP) ONE (18:56)
[2022-05-20] MEDS: ATORVASTATIN CA 80 MG TABLET (FP) PO SCH (21:15)
[2022-05-20] MEDS: QUEtiapine FUMARATE 200 MG TABLET PO SCH (21:15)
[2022-05-20] MEDS: THIAMINE HCL 100 MG TABLET (FP) PO SCH (21:15)
[2022-05-20] MEDS: MONTELUKAST NA 10 MG TABLET PO SCH (21:15)
[2022-05-20] MEDS: MELATONIN 5 MG TABLETS PO SCH (21:15)
[2022-05-20] MEDS: LIDOCAINE PATCH REMOVAL MC SCH (21:16)
[2022-05-20] MEDS: METHYL SALICYLATE/MENTHOL OINT 30 GM TUBE TP SCH (21:16)
[2022-05-21] MEDS: ACETAMINOPHEN 325 MG TABLET (FP) PO PRN (06:39)
[2022-05-21] MEDS: hydrALAZINE HCL 25 MG TABLET (FP) PO SCH ×3 (06:39→21:10)
[2022-05-21] MEDS: GABAPENTIN 300 MG CAPSULE PO SCH ×3 (06:39→21:11)
[2022-05-21] MEDS: hydrOXYzine PAMOATE 25 MG CAPSULE (FP) PO PRN ×2 (06:40→21:12)
[2022-05-21] MEDS: FAMOTIDINE 20 MG TABLET PO SCH ×2 (09:48→21:11)
[2022-05-21] MEDS: CARVEDILOL 25 MG TABLET (FP) PO SCH ×2 (09:48→21:11)
[2022-05-21] MEDS: FUROSEMIDE 40 MG TABLET (FP) PO SCH (09:48)
[2022-05-21] MEDS: APIXABAN 5 MG TABLET PO SCH ×2 (09:48→21:11)
[2022-05-21] MEDS: PRENATAL VITAMINS W/ FOLIC ACID TABLET (FP) PO SCH (09:48)
[2022-05-21] MEDS: NICOTINE 7 MG/24 HOURS TOPICAL PATCH TD SCH (09:48)
[2022-05-21] MEDS: ASPIRIN 81 MG CHEWABLE TABLETS PO SCH (09:48)
[2022-05-21] MEDS: BUDESONIDE/FORMETEROL FUMARATE 160/4.5 mcg INHALER IH SCH ×2 (09:49→21:54)
[2022-05-21] MEDS: LIDOCAINE 5% TOPICAL PATCH TP SCH (11:09)
[2022-05-21] MEDS ORDERED: ATORVASTATIN CA 40 MG TABLET (FP) ONE (19:01)
[2022-05-21] MEDS: MONTELUKAST NA 10 MG TABLET PO SCH (21:10)
[2022-05-21] MEDS: ATORVASTATIN CA 80 MG TABLET (FP) PO SCH (21:10)
[2022-05-21] MEDS: THIAMINE HCL 100 MG TABLET (FP) PO SCH (21:11)
[2022-05-21] MEDS: QUEtiapine FUMARATE 200 MG TABLET PO SCH (21:11)
[2022-05-21] MEDS: MELATONIN 5 MG TABLETS PO SCH (21:11)
[2022-05-21] MEDS: LIDOCAINE PATCH REMOVAL MC SCH (21:54)
[2022-05-21] MEDS: METHYL SALICYLATE/MENTHOL OINT 30 GM TUBE TP SCH (21:54)
[2022-05-22] MEDS: GABAPENTIN 300 MG CAPSULE PO SCH (06:29)
[2022-05-22] MEDS: hydrALAZINE HCL 25 MG TABLET (FP) PO SCH (06:29)
[2022-05-22 06:52] VITALS: TEMP 97.3
[2022-05-22 09:02] VITALS: BP 143/95; PULSE 91
[2022-05-22] MEDS: BUDESONIDE/FORMETEROL FUMARATE 160/4.5 mcg INHALER IH SCH (09:08)
[2022-05-22] MEDS: ASPIRIN 81 MG CHEWABLE TABLETS PO SCH (09:10)
[2022-05-22] MEDS: FAMOTIDINE 20 MG TABLET PO SCH (09:10)
[2022-05-22] MEDS: CARVEDILOL 25 MG TABLET (FP) PO SCH (09:10)
[2022-05-22] MEDS: PRENATAL VITAMINS W/ FOLIC ACID TABLET (FP) PO SCH (09:10)
[2022-05-22] MEDS: FUROSEMIDE 40 MG TABLET (FP) PO SCH (09:10)
[2022-05-22] MEDS: APIXABAN 5 MG TABLET PO SCH (09:10)
[2022-05-22] MEDS: NICOTINE 7 MG/24 HOURS TOPICAL PATCH TD SCH (09:11)
[2022-05-22] MEDS: LIDOCAINE 5% TOPICAL PATCH TP SCH (09:11)
[2022-05-22] MEDS: ACETAMINOPHEN 325 MG TABLET (FP) PO PRN (09:12)
[2022-05-22] MEDS ORDERED: PENICILLIN G BENZATHINE 2,400,000 UNIT/4 ML PFS IM ONE (10:00)
== END 2022-05-22 09:20 | disposition home or self-care (01) | DRG 772 ==
LOC: YASAS 15:34 → Y6N 19:56 → Y5N 20:05
PROVIDERS: ADMIT Allergy & Immunology; ATTEND Psychiatry & Neurology Pain Medicine
PROC: HZ42ZZZ Group Counseling for Substance Abuse Treatment, Cognitive-Behavioral (ICD-10-PCS; principal; 2022-04-26)
DX: F10.20 Alcohol dependence, uncomplicated (principal); F14.20 Cocaine dependence, uncomplicated; F12.20 Cannabis dependence, uncomplicated; F17.210 Nicotine dependence, cigarettes, uncomplicated; F19.282 Other psychoactive substance dependence with psychoactive substance-induced sleep disorder; F31.9 Bipolar disorder, unspecified; F39 Unspecified mood [affective] disorder; I25.118 Atherosclerotic heart disease of native coronary artery with other forms of angina pectoris; I10 Essential (primary) hypertension; E78.5 Hyperlipidemia, unspecified; G47.30 Sleep apnea, unspecified; J45.909 Unspecified asthma, uncomplicated; K21.9 Gastro-esophageal reflux disease without esophagitis; R76.8 Other specified abnormal immunological findings in serum; Z86.19 Personal history of other infectious and parasitic diseases; Z62.810 Personal history of physical and sexual abuse in childhood; Z95.810 Presence of automatic (implantable) cardiac defibrillator; Z79.01 Long term (current) use of anticoagulants; Z95.2 Presence of prosthetic heart valve
CPT/HCPCS: 36415; 80053; 81003; 85027; 86593; 86780